=== PATIENT | female | born 1950 | race Caucasian/White ===

== ENCOUNTER → 2016-07-22 | Outpatient (CLI) | payer BC | END | disposition home or self-care (01) | LOC: C.PAPS 09:05 | PROVIDERS: ATTEND Family Medicine | DX: Z12.4 Encounter for screening for malignant neoplasm of cervix (principal) ==

== ENCOUNTER → 2017-10-03 | Outpatient (CLI) | payer BC ==
[~2017-10-03] MED LIST: B-COTAB53 PO; CALC-354 PO; CASC450C3 PO; CHOL1000 PO; LEVO50TA6 PO; MULT-506 PO; OMEGCAP2 PO
--- NOTE | 2017-10-05 14:13 | MAMMOGRAPHY REPORT ---
BILATERAL DIGITAL SCREENING MAMMOGRAM TOMOSYNTHESIS WITH CAD: 10/03/2017 CLINICAL HISTORY: Routine screening. Patient has no complaints. TECHNIQUE: Breast tomosynthesis in addition to standard 2D mammography was performed. Current study was also evaluated with a Computer Aided Detection (CAD) system. COMPARISON: Comparison is made to exams dated: 08/30/2016 mammogram, 08/21/2015 mammogram, 07/31/2014 ma mmogram, 06/26/2013 mammogram, and 05/28/2013 mammogram - [facility]. BREAST COMPOSITION: The tissue of both breasts is heterogeneously dense, which may obscure small mas ses. FINDINGS: No suspicious masses, calcifications, or areas of architectural distortion are noted in ei ther breast. There has been no significant interval change compared to prior exams. Bilateral benign -appearing calcifications are not significantly changed compared to prior exams when accounting for s light differences in mammographic technique. IMPRESSION: ACR BI-RADS CATEGORY 2: BENIGN There is no mammographic evidence of malignancy. A 1 year screening mammogram is recommended. The pa tient will receive written notification of the results. Approximately 10% of breast cancers are not detected with mammography. A negative mammographic report should not delay biopsy if a clinically suggestive mass is present. Mary Penn M.D. ah/:10/04/2017 16:08:41 [employer]: Megan HOPKINS(Paola)(M), [facility] letter sent: Normal 1/2 BI-RADS Code: ACR BI-RADS Category 2: Benign
== END | disposition home or self-care (01) ==
LOC: C.MAMM 14:22
PROVIDERS: ATTEND Family Medicine
DX: Z12.31 Encounter for screening mammogram for malignant neoplasm of breast (principal)

== ENCOUNTER → 2017-10-06 | Day surgery (SDC) | payer BC ==
[2017-08-18 13:53] VITALS: Ht 154.9 cm; Wt 57.3 kg
[~2017-10-06] VITALS: Ht 154.9 cm; Wt 57.3 kg
[~2017-10-06] MED LIST changes: +LIDOCAINE HCL 2% 2 ML VIAL (20MG/ML) ONE; +MIDAZOLAM HCL 1 MG/ML 2ML VIAL ONE; +ONDANSETRON INJ 2 MG/ML 2 ML VIAL ONE; +PROPOFOL IV EMULSION 10 MG/ML 20 ML VIAL IV ONE
--- NOTE | 2017-10-06 15:30 | Endo History and Physical ---
History & Physical Date of Service: Oct 06, 2017. Chief Complaint: Positive cologuard Referring Physician: Dr. Chey Root History of Present Illness 67 yo CF who presents for colonoscopy secondary to positive cologuard. Past Surgical History Hx Cardiac Surgery: No Hx Internal Defibrillator: No Hx Pacemaker: No Hx Abdominal Surgery: Yes () Hx of Implantable Prosthesis: No Hx Post-Op Nausea and Vomiting: No Hx Cancer Surgery: No Hx Thoracic Surgery: No Hx Orthopedic: No Hx Urinary Tract Surgery: No Family History None Social History Smoking Status: Never Smoker Hx Substance Use: No Hx Alcohol Use: No Allergies Coded Allergies: No Known Allergies (Verified , 10/06/17) Current Medications Reported Home Medications Medications Dose Route/Sig Max Daily Dose Days Date Category Dose Instructions Fish Oil ([place]-3 Fatty Acids) 1 Cap Cap 1 Cap PO DAILY 08/18/17 Reported [place] 450 Mg Cap 1 Cap PO 3XWK 08/18/17 Reported Caltrate 600+D (Calcium Carbonate-Cholecalcife) 1 Tab Tab 1 Tab PO DAILY 08/18/17 Reported Multivitamin (Multivitamins) Tab 1 Tab PO DAILY 08/18/17 Reported B Complex (B-Complex W/ Folic Acid) 1 Tab Tab 1 Tab PO DAILY 08/18/17 Reported Vitamin D3 (Cholecalciferol) 1,000 Unit Tab 1 Tab PO DAILY 08/18/17 Reported Levothyroxine Sodium 50 Mcg Tab 2 Tabs PO 6XWK 08/18/17 Reported DOES NOT TAKE ON SUNDAYS Vital Signs Weight (Kilograms): 57.27 Height (Feet): 5 Height (Inches): 1 Date Time Temp Pulse Resp B/P (MAP) Pulse Ox O2 Delivery O2 Flow Rate FiO2 10/06/17 14:31 36.6 70 18 132/77 (95) 94 Room Air Physical Exam General Appearance: WD/WN, no apparent distress Respiratory/Chest: Auscultation: breath sounds normal Cardiovascular: Heart Auscultation: RRR Abdomen: Bowel Sounds: normal Inspection & Palpation: soft, non-distended, no tenderness, guarding & rebound Assessment and Plan Assessment: 67 yo CF who presents for colonoscopy secondary to positive cologuard. Plan: Proceed with colonoscopy.
--- NOTE | 2017-10-06 16:21 | Discharge Instructions ---
Endoscopy Patient Instructions Date / Procedure(s) Performed Oct 06, 2017. Colonoscopy Allergy Information Coded Allergies: No Known Allergies (Verified , 10/06/17) Discharge Date / Findings Oct 06, 2017. Colon polyps Internal hemorrhoids Medication Instructions Stopped Medication(s): Patient stopped all supplements and vitamins on her own. OK to resume all medications today as prescribed Reported Home Medications Medications Dose Route/Sig Max Daily Dose Days Date Category Dose Instructions Fish Oil ([place]-3 Fatty Acids) 1 Cap Cap 1 Cap PO DAILY 08/18/17 Reported C[place] 450 Mg Cap 1 Cap PO 3XWK 08/18/17 Reported Caltrate 600+D (Calcium Carbonate-Cholecalcife) 1 Tab Tab 1 Tab PO DAILY 08/18/17 Reported Multivitamin (Multivitamins) Tab 1 Tab PO DAILY 08/18/17 Reported B Complex (B-Complex W/ Folic Acid) 1 Tab Tab 1 Tab PO DAILY 08/18/17 Reported Vitamin D3 (Cholecalciferol) 1,000 Unit Tab 1 Tab PO DAILY 08/18/17 Reported Levothyroxine Sodium 50 Mcg Tab 2 Tabs PO 6XWK 08/18/17 Reported DOES NOT TAKE ON SUNDAYS Provider Instructions Activity Restrictions - No exercising or heavy lifting for 24 hours. - Do not drink alcohol the day of the procedure. - Do not drive a car or operate machinery until the day after the procedure. - Do not make any important decisions or sign important papers in 24 hours after the procedure. Following Day: - Return to full activity which may include returning to work/school. Diet Start your diet with liquids and light foods (jello, soup, juice, toast). Then eat your usual diet if not nauseated. Treatment For Common After Affects For mild abdominal pain, bloating, or excessive gas: - Rest - Eat lightly - Lie on right side Follow-Up Information Follow-up with Dr. Chey Root as scheduled Anesthesia Information What You Should Know You have had a procedure that required some medicine to reduce anxiety and discomfort. This treatment is called moderate sedation. After receiving the treatment, you may be sleepy, but you will be able to breathe on your own. The effects of the treatment may last for several hours. Follow these instructions along with Activity/Diet recommendations noted above: * Do NOT do anything where dizziness or clumsiness would be dangerous. * Rest quietly at home today, then you can be up and about tomorrow. * Have a responsible person stay with you the rest of today. * You may have had an I.V. today. If so, you may take the dressing off later today. Recommendations Call your doctor if: * Trouble breathing * Continuous vomiting for more than 24 hours * Temperature above 101 degrees * Severe abdominal pain or bloating * Pain not relieved by pain medicine ordered * There is increased drainage or redness from any incision * A large amount of rectal bleeding greater than 2-3 tablespoons. (If you had a polyp/s removed or have hemorrhoids, a small amount of blood - from the rectum is to be expected.) * You have any unanswered questions or concerns. IN THE EVENT OF A SERIOUS EMERGENCY, GO TO THE NEAREST EMERGENCY ROOM Your discharge instructions were prepared by provider Alejandro Gilmore. Patient Instructions Signature Page Julisa Bryant Patient (or Guardian) Signature/Date: I have read and understand the instructions given to me by my caregivers. Caregiver/RN/Doctor Signature/Date: The above-named patient and/or guardian has received patient instructions on this date. + Original Patient Signature Page (only) stays with chart. Please make copy for patient.
--- NOTE | 2017-10-06 16:29 | Anesthesiology Progress Note ---
Anesthesia Post Op Note Date & Time Oct 06, 2017 at 16:28 Vital Signs Pain Intensity: 0 Vital Signs Past 12 Hours Date Time Temp Pulse Resp B/P (MAP) Pulse Ox O2 Delivery O2 Flow Rate FiO2 10/06/17 14:31 36.6 70 18 132/77 (95) 94 Room Air Notes Mental Status: alert / awake / arousable, participated in evaluation Pt Amnestic to Procedure: Yes Nausea / Vomiting: adequately controlled Pain: adequately controlled Airway Patency, RR, SpO2: stable & adequate BP & HR: stable & adequate Hydration State: stable & adequate Anesthetic Complications: no major complications apparent
--- NOTE | 2017-10-06 16:30 | GI REPORT ---
Procedure Date: 10/06/2017 3:36 PM Procedure: Colonoscopy Indications: Positive Cologuard test Medicines: Monitored Anesthesia Care Complications: No immediate complications. Estimated Blood Loss: Estimated blood loss: none. Procedure: Pre-Anesthesia Assessment: - Prior to the procedure, a History and Physical was performed, and patient medications and allergies were reviewed. The patient's tolerance of previous anesthesia was also reviewed. The risks and benefits of the procedure and the sedation options and risks were discussed with the patient. All questions were answered, and informed consent was obtained. Prior Anticoagulants: The patient has taken no previous anticoagulant or antiplatelet agents. ASA Grade Assessment: II - A patient with mild systemic disease. After reviewing the risks and benefits, the patient was deemed in satisfactory condition to undergo the procedure. After I obtained informed consent, the scope was passed under direct vision. Throughout the procedure, the patient's blood pressure, pulse, and oxygen saturations were monitored continuously. The Scope was introduced through the anus and advanced to the terminal ileum. The colonoscopy was performed without difficulty. The patient tolerated the procedure well. The quality of the bowel preparation was good. The terminal ileum, ileocecal valve, appendiceal orifice, and rectum were photographed. Findings: The perianal and digital rectal examinations were normal. A 17 mm polyp was found in the ascending colon. The polyp was flat. The polyp was removed with a saline injection-lift technique using a hot snare at 20 herrera. Resection and retrieval were complete. Two hemostatic clips were successfully placed (MR conditional). A 7 mm polyp was found in the ascending colon. The polyp was flat. The polyp was removed with a hot snare. Resection and retrieval were complete. Non-bleeding internal hemorrhoids were found during retroflexion. The hemorrhoids were small. Impression: - One 17 mm polyp in the ascending colon, removed using injection-lift and a hot snare. Resected and retrieved. Clips (MR conditional) were placed. - One 7 mm polyp in the ascending colon, removed with a hot snare. Resected and retrieved. - Non-bleeding internal hemorrhoids. Recommendation: - Resume previous diet. - Continue present medications. - Await pathology results. - Repeat colonoscopy for surveillance based on pathology results. Alejandro Gilmore DO 10/06/2017 4:29:45 PM This report has been signed electronically. Note Initiated On: 10/06/2017 3:36 PM I attest to the content of the Intraoperative Record and orders documented therein, exceptions below
[2017-10-06 17:01] VITALS: BP 117/61; PULSE 70; O2SAT 99
== END | disposition home or self-care (01) ==
LOC: C.GI 13:45
PROVIDERS: ATTEND Internal Medicine
DX: Z12.11 Encounter for screening for malignant neoplasm of colon (principal); D12.2 Benign neoplasm of ascending colon; K64.8 Other hemorrhoids; E03.9 Hypothyroidism, unspecified; Z87.891 Personal history of nicotine dependence

== ENCOUNTER 2025-02-19 11:00 | Inpatient (IN) ==
--- NOTE | 2025-02-19 11:21 | Emergency Department Note ---
Impression & Plan Atrial fibrillation, new onset, Pericardial effusion, Pleural effusion ED Provider Note NAME: CHERELLE ARREDONDO AGE: 75 SEX: F : 1950 ARRIVES VIA: Walk-In INFORMANT: Patient, ED PROVIDER(S): Pietro Mccord DO CHIEF COMPLAINT: "here to have my lung drained" HPI: This is a 75-year-old female with the PMHx of scleroderma, HLD, hypothyroidism, OA and pericardial effusion s/p drainage at [facility] [place] presenting to [facility] for further evaluation of large pleural effusion. Patient is accompanied by her who provide additional history. The patient states that she is here to have her pleural effusion drained. Patient states that she was in [facility] recently for manage pericardial effusion that required drainage. She reports this was infected and she required antibiotics. Patient states that she was at [place] yesterday and left AGAINST MEDICAL ADVICE. She states that they told her that she had a pericardial effusion as well as a lot of fluid in her left lung. Patient presents today to have this drained. Patient states that she has shortness of breath and intermittent chest tightness. She denies chest palpitations. Patient denies history of atrial fibrillation. They deny fever or chills. No cough or congestion. They deny abdominal pain, nausea and vomiting. No urinary complaints. No recent changes in bowel movements. Patient denies recent changes in medications or OTC supplements. Patient offers no other complaints, today. ADDITIONAL HISTORY OBTAINED: Per HPI Chronic Medical/Social Conditions Affecting Care: Per HPI PAST MEDICAL HISTORY: See Below PAST SURGICAL HISTORY: See Below FAMILY HISTORY: See Below SOCIAL HISTORY: See Below HOME MEDICATIONS: See Below ALLERGIES: See Below VITALS: See Below PHYSICAL EXAMINATION: GENERAL: Sitting up in bed, alert, well appearing, well nourished, no distress, non-toxic EYE EXAM: normal conjunctiva. PERRL and EOM's grossly intact. OROPHARYNX: no exudate, no erythema, lips, buccal mucosa, and tongue normal and mucous membranes are moist NECK: supple, no nuchal rigidity, no adenopathy, non-tender LUNGS: Decreased BS on the L. Normal chest wall mechanics HEART: no murmurs, tachycardic rate, irregular rhythm ABDOMEN: abdomen soft, non-tender, no masses, no rebound or guarding. BACK: Back is symmetrical on inspection and there is no deformity, no midline tenderness, no CVA tenderness. SKIN: no rashes and no bruising UPPER EXTREMITIES: upper extremities are grossly normal. LOWER EXTREMITIES: Trace GRACE. NEURO EXAM: Normal sensorium, GCS 15, normal speech, no gross weakness of arms, no gross weakness of legs. MEDICAL DECISION MAKING: Differential diagnoses includes but not limited to ACS, unstable angina, dysrhythmia, PNA, hypervolemia/pulmonary edema, CHF exacerbation, COPD exacerbation, PE, pneumothorax, pericardial effusion, cardiac tamponade, anxiety/psychogenic, viral URI In summary, this is a 75 year old female who presented with SOB. Differential as above. Nursing notes and pertinent past medical records reviewed. Vital signs reviewed and the patient is tachycardic and mildly tachypneic but otherwise afebrile and HDS. History and presentation revealed recent [facility] ED visit and diagnosed with pericardial effusion and pleural effusion. Patient reports today to have this removed. Care management was able to obtain the records from [facility]. Patient has been having neck and back pain. Patient was found to have significant pleural effusions on her lungs as well as a prior pericardial effusion. Patient arrives today to have her pleural effusion removed per her PCP. It appears the patient signed out AMA. Physical examination revealed as above. As a result of my initial evaluation, patient presents today with ongoing shortness of breath and back/neck pain and found to be in an irregularly irregular tachycardic. Appears to be new onset atrial fibrillation. Plan for cardiac workup. Will obtain bedside ultrasound as well as chest x-ray. Diagnostics interpreted by me include EKG and cardiac monitoring as listed below: -Cardiac Monitoring: An order was placed for continuous cardiac monitoring. The monitor shows a rate of 50-150s with irregular rhythm. -ECG: EKG independently interpreted by me reveals new onset atrial fibrillation with RVR at [address] segment changes suggest STEMI. Intervals otherwise within normal limits. Patient completed laboratory studies and imaging. Results independently interpreted by me are No significant anemia or leukocytosis. Patient's electrolytes are normal. She was mildly acidotic. Normal kidney function. Mild troponin leak in the setting of her atrial fibrillation with RVR. BNP is elevated. Chest x-ray independently turbid by me reveals a left-sided pleural effusion. No pneumothorax or focal consolidation to suggest pneumonia. Bedside ultrasound utilized. EF appears normal. There is a trace pericardial effusion. Large left-sided pleural effusion noted.. IVC appears very well with respirations. No B-lines. She may have mild heart failure but it appears her issues today are largely related to atrial fibrillation with RVR. Given concerns for possible heart failure, we proceeded with IV metoprolol for rate control. She was able to become rate controlled. Still intermittently tachycardic. Given the pleural effusion and new onset atrial fibrillation as well as her age and comorbidities, I do think it would be necessary to admit this patient. Patient is agreeable to admission at this time. Ultimately, the decision was made to admit the patient for new onset atrial fibrillation with RVR. I discussed the case with the hospitalist service via telephone/TigerText and they are agreeable to admit the patient to their services. Based on the above, including the patient's age, coexisting illnesses, labs, imaging, and exam findings the decision to treat as an inpatient. I discussed the patient with the hospitalist team who recommended admission to their services. They received the medications, treatments, interventions indicated above and their condition remained guarded. I discussed my findings with the patient and their family and they understand and agree with the treatment plan. All patient / family questions were answered to their satisfaction. Consults/Care Managements Discussions: Per MDM ER treatment provided: See above Procedures:none Critical Care: None The chart was completed utilizing D[employer]ion Speech voice recognition software. Grammatical errors, random word insertions, pronoun errors, and incomplete sentences are an occasional consequence of this system due to software limitations, ambient noise, and hardware issues. Any formal questions or concerns about the content, text, or information contained within the body of this dictation should be directly addressed to the physician for clarification. Past Med/Surg History Problem List (Updated 02/21/25 @ 08:03 by Pietro Mccord DO) Pleural effusion (Acute) Pericardial effusion (Acute) Atrial fibrillation, new onset (Acute) Pulmonary hypertension RVSP 48mmHg (mild pulm HTN) on 11/2023 stress ECHO Mean PASP 22mmHg (borderline pulm HTN) per 07/2022 [facility] Elevated troponin Recurrent left pleural effusion Balance problems Mixed hearing loss, bilateral Post-op pain Chronic sinusitis, unspecified Dysfunction of both eustachian tubes Pericardial effusion Raynaud phenomenon Dyspnea on exertion Allergic rhinitis Restrictive lung disease Thrombocytopenia Scleroderma Osteoporosis Systemic sclerosis with limited cutaneous involvement Hyperlipidemia Hypothyroidism History of adenomatous polyp of colon Medical History (Updated 02/21/25 @ 08:03 by Pietro Mccord DO) Osteoporosis pt denies. Thrombocytopenia per pt "currently low" platelets range from 68-84 since 09/2020 to 09/2023 History of COVID-19 early 05/2024, no residual symptoms Asthma allergy related, more in the spring Scleroderma Restrictive lung disease hx; used to f/u kyle neal Raynaud phenomenon Pericardial effusion - hx; f/u [facility] cardio - Moderate pericardial effusion (1-2 cm); no echocardiographic indications of cardiac tamponade per 01/2024 ECHO (no change from prior study on 03/2023) - Per cardio records- pericardial effusion secondary to scleroderma and associated chronic inflammatory mechanisms Hyperlipidemia hx, "only borderline" Dyspnea on exertion - Chronic per records - Fairly minimal with prior negative stress test per cardio records - Possible due to LVH/pulm HTN vs restrictive lung disease secondary to terminal makeup operator effects of scleroderma Chronic sinusitis Allergic rhinitis Hypothyroidism Surgical History History of placement of ear tubes History of nasal septoplasty Hx of cardiac cath H/O colonoscopy History of delivery Family History Mother Diabetes Sister Breast cancer Denies family history of Ovarian cancer Prostate cancer Myocardial infarction Colorectal cancer Social History Smoking Status: Former smoker Tobacco Type: Cigarettes Age Started Using Tobacco: 18; Age Quit Using Tobacco: 58; packs per day: 0.5; Cigarettes Per Day: half a pack a week; Second Hand Exposure: No; Do You Dip or Chew Tobacco: No; Tobacco Cessation Education Requested by Patient: No Hx Alcohol Use: No Hx Substance Use: No Preferred Language: Sinhala Communication Ability: Effective Visual Impairment: Limited Hearing Ability: Normal Marketing Admin Required: No Beliefs That Will Affect Care: None marital status: Current Living Situation: Spouse current occupational status: retired current occupation: retired banker How many Children do You have: 2 Other Information That Helps Us Care for You: No Feels Safe at Home: Yes Safety Concerns: Feels Safe At This Time Childhood Exposure to Second-Hand Smoke: No Diet: regular caffeine: Yes during the past year weight has: remained stable Dental Care, Regularly: Yes Physical Activity Frequency: 3-4 Times per Week Seatbelt Use: always Sunscreen Use: Yes Do you think of yourself as: straight/heterosexual Gender Identity: Female Assistive Devices: None Allergies Allergies Allergy/AdvReac Type Severity Reaction Status Date / Time No Known Drug Allergies Allergy Verified 02/18/25 11:29 Home Meds Home Medications Medication Instructions Recorded Confirmed fluticasone propionate 50 1 spray intranasal DAILY PRN Nasal 04/22/21 02/19/25 mcg/actuation nasal congestion spray,suspension (Flonase Allergy Relief) calcium carbonate (Calcium 600) 1,200 mg PO QAM 06/06/24 02/19/25 loratadine 10 mg tablet 10 mg PO DAILY PRN Allergy Symptoms 06/06/24 02/19/25 magnesium 200 mg tablet 200 mg PO QAM 06/06/24 02/19/25 multivitamin 1 tab PO QAM 06/06/24 02/19/25 capsicum (cayenne) 250 mg capsule 0 mg PO UD 01/28/25 02/19/25 hawthorn 500 mg capsule (hawthorn 0 mg PO DAILY 01/28/25 02/19/25 gómez) omeprazole 20 mg capsule,delayed 20 mg PO DAILY PRN heart burn 01/28/25 02/19/25 release azelastine 0.05 % eye drops 1 drp ophthalmic (eye) UD 02/19/25 02/19/25 levothyroxine 50 mcg tablet 50 mcg PO UD 02/19/25 02/19/25 Previous Rx's Medication Instructions Recorded cyclobenzaprine 5 mg tablet 5 mg PO BID PRN muscle spasm #10 02/18/25 tabs Results & Data (ED) Vital Signs Vital Signs - 24 hr 02/19/25 11:04 02/19/25 11:51 02/19/25 11:51 Temperature 36.7 C Temperature Source Temporal Artery Scan Pulse Rate 81 Pulse Rate [Apical] Pulse Rate from SpO2 Sensor Pulse Rhythm [Apical] Respiratory Rate 18 Respiratory Effort / Characteristics Non-Labored Spontaneous Respiratory Depth Normal Respiratory Pattern Blood Pressure 111/59 L 106/74 106/74 Blood Pressure [Left Arm] Blood Pressure Mean 76 79 79 Blood Pressure Mean [Left Arm] Blood Pressure Position Sitting Blood Pressure Position [Left Arm] Pulse Oximetry 97 Oxygen Delivery Method Room Air Sepsis Recent Fever Within 48 Hours No Sepsis New/Unexplained Change in Mental Status No Sepsis Action Taken by Nursing No Action Required 02/19/25 11:51 02/19/25 11:54 02/19/25 12:00 Temperature Temperature Source Pulse Rate 146 H Pulse Rate [Apical] Pulse Rate from SpO2 Sensor 111 H Pulse Rhythm [Apical] Respiratory Rate 26 H Respiratory Effort / Characteristics Respiratory Depth Respiratory Pattern Blood Pressure 106/74 Blood Pressure [Left Arm] Blood Pressure Mean 79 Blood Pressure Mean [Left Arm] Blood Pressure Position Blood Pressure Position [Left Arm] Pulse Oximetry 92 93 Oxygen Delivery Method Room Air Sepsis Recent Fever Within 48 Hours Sepsis New/Unexplained Change in Mental Status Sepsis Action Taken by Nursing 02/19/25 12:00 02/19/25 12:12 02/19/25 12:27 Temperature Temperature Source Pulse Rate 145 H 128 H Pulse Rate [Apical] 123 H Pulse Rate from SpO2 Sensor 118 H Pulse Rhythm [Apical] Irregular Respiratory Rate 20 24 Respiratory Effort / Characteristics Non-Labored Spontaneous Respiratory Depth Normal Respiratory Pattern Regular Blood Pressure Blood Pressure [Left Arm] 121/72 Blood Pressure Mean Blood Pressure Mean [Left Arm] 88 Blood Pressure Position Blood Pressure Position [Left Arm] Semi-fowlers Pulse Oximetry 92 91 Oxygen Delivery Method Room Air Sepsis Recent Fever Within 48 Hours Sepsis New/Unexplained Change in Mental Status Sepsis Action Taken by Nursing 02/19/25 12:39 02/19/25 12:45 02/19/25 13:00 Temperature Temperature Source Pulse Rate 143 H 128 H Pulse Rate [Apical] Pulse Rate from SpO2 Sensor 120 H 118 H Pulse Rhythm [Apical] Respiratory Rate 23 24 Respiratory Effort / Characteristics Respiratory Depth Respiratory Pattern Blood Pressure 110/70 Blood Pressure [Left Arm] Blood Pressure Mean 92 Blood Pressure Mean [Left Arm] Blood Pressure Position Blood Pressure Position [Left Arm] Pulse Oximetry 92 91 Oxygen Delivery Method Sepsis Recent Fever Within 48 Hours Sepsis New/Unexplained Change in Mental Status Sepsis Action Taken by Nursing 02/19/25 13:06 02/19/25 13:27 02/19/25 13:30 Temperature Temperature Source Pulse Rate 134 H 141 H 119 H Pulse Rate [Apical] Pulse Rate from SpO2 Sensor 133 H 126 H 106 H Pulse Rhythm [Apical] Respiratory Rate 20 20 22 Respiratory Effort / Characteristics Respiratory Depth Respiratory Pattern Blood Pressure Blood Pressure [Left Arm] Blood Pressure Mean Blood Pressure Mean [Left Arm] Blood Pressure Position Blood Pressure Position [Left Arm] Pulse Oximetry 90 94 92 Oxygen Delivery Method Sepsis Recent Fever Within 48 Hours Sepsis New/Unexplained Change in Mental Status Sepsis Action Taken by Nursing 02/19/25 13:30 02/19/25 13:30 02/19/25 13:30 Temperature Temperature Source Pulse Rate Pulse Rate [Apical] Pulse Rate from SpO2 Sensor Pulse Rhythm [Apical] Respiratory Rate Respiratory Effort / Characteristics Respiratory Depth Respiratory Pattern Blood Pressure 103/68 103/68 103/68 Blood Pressure [Left Arm] Blood Pressure Mean 72 72 72 Blood Pressure Mean [Left Arm] Blood Pressure Position Blood Pressure Position [Left Arm] Pulse Oximetry Oxygen Delivery Method Sepsis Recent Fever Within 48 Hours Sepsis New/Unexplained Change in Mental Status Sepsis Action Taken by Nursing 02/19/25 13:49 02/19/25 13:49 02/19/25 13:50 Temperature Temperature Source Pulse Rate 136 H Pulse Rate [Apical] 131 H Pulse Rate from SpO2 Sensor Pulse Rhythm [Apical] Respiratory Rate 20 Respiratory Effort / Characteristics Non-Labored Spontaneous Respiratory Depth Normal Respiratory Pattern Regular Blood Pressure 106/74 106/74 Blood Pressure [Left Arm] 106/74 Blood Pressure Mean 79 Blood Pressure Mean [Left Arm] 84 Blood Pressure Position Blood Pressure Position [Left Arm] Semi-fowlers Pulse Oximetry 91 Oxygen Delivery Method Room Air Sepsis Recent Fever Within 48 Hours Sepsis New/Unexplained Change in Mental Status Sepsis Action Taken by Nursing 02/19/25 13:51 02/19/25 14:00 02/19/25 14:00 Temperature Temperature Source Pulse Rate 107 H 110 H Pulse Rate [Apical] Pulse Rate from SpO2 Sensor 103 H 96 H Pulse Rhythm [Apical] Respiratory Rate 24 24 Respiratory Effort / Characteristics Respiratory Depth Respiratory Pattern Blood Pressure 107/69 Blood Pressure [Left Arm] Blood Pressure Mean 79 Blood Pressure Mean [Left Arm] Blood Pressure Position Blood Pressure Position [Left Arm] Pulse Oximetry 95 94 Oxygen Delivery Method Sepsis Recent Fever Within 48 Hours Sepsis New/Unexplained Change in Mental Status Sepsis Action Taken by Nursing 02/19/25 14:20 02/19/25 14:30 02/19/25 14:31 Temperature Temperature Source Pulse Rate 100 H Pulse Rate [Apical] Pulse Rate from SpO2 Sensor Pulse Rhythm [Apical] Respiratory Rate Respiratory Effort / Characteristics Respiratory Depth Respiratory Pattern Blood Pressure 110/68 111/68 111/68 Blood Pressure [Left Arm] Blood Pressure Mean 70 87 Blood Pressure Mean [Left Arm] Blood Pressure Position Blood Pressure Position [Left Arm] Pulse Oximetry Oxygen Delivery Method Sepsis Recent Fever Within 48 Hours Sepsis New/Unexplained Change in Mental Status Sepsis Action Taken by Nursing 02/19/25 15:43 02/19/25 16:03 Temperature Temperature Source Pulse Rate 58 L Pulse Rate [Apical] 58 L Pulse Rate from SpO2 Sensor Pulse Rhythm [Apical] Respiratory Rate 20 21 Respiratory Effort / Characteristics Respiratory Depth Respiratory Pattern Blood Pressure 107/62 Blood Pressure [Left Arm] 111/60 Blood Pressure Mean 77 Blood Pressure Mean [Left Arm] 77 Blood Pressure Position Blood Pressure Position [Left Arm] Pulse Oximetry 96 95 Oxygen Delivery Method Room Air Room Air Sepsis Recent Fever Within 48 Hours Sepsis New/Unexplained Change in Mental Status Sepsis Action Taken by Nursing Laboratory Data 02/21/25 05:49 02/21/25 05:49 Lab Results 02/19/25 02/19/25 Range/Units 11:33 13:51 WBC 6.30 (4.8-10.8) K/ul RBC 4.78 (4.20-5.40) M/uL Hgb 14.6 (12.0-16.0) g/dl Hct 45.2 (37.0-47.0) % MCV 94.6 (80.0-100.0) fL MCH 30.5 (25.0-34.0) pg MCHC 32.3 (32.0-36.0) g/dL RDW Std Deviation 54.7 H (36.4-46.3) fL RDW Coeff of Ward 15.9 H (11.5-14.5) % Plt Count 45 L (130-400) K/uL MPV 14.2 H (9.4-12.4) fL Immature Gran % (Auto) 0.5 % Neut % (Auto) 78.2 % Lymph % (Auto) 14.0 % Pitt % (Auto) 6.5 % Eos % (Auto) 0.5 % Baso % (Auto) 0.3 % Neut # (Auto) 4.93 (1.40-6.50) K/uL Lymph # (Auto) 0.88 L (1.20-3.40) K/uL Pitt # (Auto) 0.41 (0.11-0.59) K/uL Eos # (Auto) 0.03 (0.00-0.50) K/uL Baso # (Auto) 0.02 (0.00-0.20) K/uL Immature Gran # (Auto) 0.03 (0.01-0.20) K/uL PT 14.0 H (9.0-12.0) Seconds INR 1.3 H (0.9-1.1) APTT 36 H (21-31) Seconds PTT Ratio 1.3 VBG pH 7.35 L (7.36-7.41) VBG pCO2 43 (38-50) mmHg VBG pO2 < 20 mmHg VBG HCO3 24 mmol/L VBG O2 Saturation < 60.0 % VBG Base Excess -2.0 mEq/L Sodium 144 (136-145) mmol/L Potassium 4.3 (3.5-5.1) mmol/L Chloride 114 H (98-107) mmol/L Carbon Dioxide 23 (21-32) mmol/L Anion Gap 7 (3-11) BUN 27 H (6-23) mg/dl Creatinine 1.06 (0.6-1.2) mg/dl Est Cr Clr Drug Dosing 29.1 ml/min eGFR 54.11 BUN/Creatinine Ratio 25.5 H (10-20) Glucose 93 (70-99(Fasting)) mg/dl Calcium 9.2 (8.6-10.3) mg/dl Phosphorus 3.4 (2.5-4.9) mg/dl Magnesium 2.0 (1.7-2.4) mg/dl Total Bilirubin 2.5 H (0.2-1.0) mg/dl AST 34 (13-39) U/L ALT 35 (7-52) U/L Alkaline Phosphatase 124 H (34-104) U/L Troponin I High Sens 32.5 H 44.5 H D (0-14) pg/ml B-Natriuretic Peptide 1181 H (0-100) pg/ml Total Protein 6.2 (6.0-8.3) gm/dl Albumin 3.6 (3.4-5.0) gm/dl Globulin 2.6 (2.5-4.0) gm/dl Albumin/Globulin Ratio 1.4 (0.9-2) TSH 2.370 (0.300-4.500) uIu/ml Administered Medications Calcium Carbonate (Calcium Carbonate 1250mg Tab) [facility] [place] Protocol Stop: 03/22/25 08:59 Last Admin: 02/20/25 08:57 Dose: 1 tab Documented By: ERICA Cyclobenzaprine HCl (Cyclobenzaprine Hcl 5 Mg Tab) 5 mg PO BID PRN PRN Reason: muscle spasm Stop: 03/21/25 16:52 Last Admin: 02/20/25 20:17 Dose: 5 mg Documented By: JOSE Levothyroxine Sodium (Levothyroxine Sodium 100 Mcg Tablet) 100 mcg PO [id number] [facility] Stop: 03/22/25 06:29 Last Admin: 02/21/25 05:57 Dose: 100 mcg Documented By: Admin: 02/20/25 06:17 Dose: 100 mcg Documented By: JOSE Multivitamins (Multivitamin Tab) 1 [facility] [place] Stop: 03/22/25 08:59 Last Admin: 02/20/25 08:57 Dose: 1 tab Documented By: ERICA Discontinued Medications Metoprolol Tartrate (Metoprolol Tartrate 1 Mg/Ml Vial) 5 mg IV Q5M PRN PRN Reason: Tachycardia Stop: 03/21/25 12:48 Last Admin: 02/19/25 13:50 Dose: 5 mg Documented By: REYNA Metoprolol Tartrate (Metoprolol Tartrate 25 Mg Tab) 12.5 mg PO BID [facility] Stop: 03/22/25 20:59 Last Admin: 02/20/25 20:17 Dose: 12.5 mg Documented By: JOSE Imaging Data Radiologist's Impression: Chest X-Ray 02/19/25 11:21 XR chest 2V PA/lateral CLINICAL HISTORY: Dyspnea COMPARISON STUDY: 09/09/2023 FINDINGS: The heart is normal in size. There is blunting of the lateral costophrenic angles consistent with small effusions. The effusion on the left appears larger. There is associated left lower lobe atelectasis/consolidation. The mid and upper lung zones appear clear. No pneumothorax is visualized. Hilar structures are unremarkable in appearance. IMPRESSION: Increasing subpulmonic left pleural effusion with associated left lower lobe atelectasis/consolidation. ACT 112: Negative or not required by law. Electronically signed by: Camilo Burns M.D. 02/19/2025 11:56 AM Discharge Plan Visit Data Chief Complaint: Respiratory Problems Stated Complaint: FLUID ON LUNGS ED Provider: Pietro Mccord Discharge Problem: Atrial fibrillation, new onset, Pericardial effusion, Pleural effusion Patient Disposition: Admitted As Inpatient Condition: Fair Discharge Instructions Interventions: ED Discharge Assessment Last Done: 02/19/25 16:40
[2025-02-19 11:44] LABS: Base Excess VBG -2.0 mEq/L; HCO3 VBG 24 mmol/L; Oxygen Saturation VBG < 60.0 %; PCO2 VBG 43 mmHg (38-50); PO2 VBG < 20 mmHg; pH VBG 7.35 (7.36-7.41)
[2025-02-19 11:50] LABS: Hematocrit (blood only) 45.2 % (37.0-47.0); Hemoglobin 14.6 g/dl (12.0-16.0); Immature Granulocytes # (auto) 0.03 K/uL (0.01-0.20); Immature Granulocytes % (auto) 0.5 %; Mean Corpuscular Hemoglobin 30.5 pg (25.0-34.0); Mean Corpuscular Volume 94.6 fL (80.0-100.0); Platelet Count 45 K/uL (130-400); RDW Standard Deviation 54.7 fL (36.4-46.3); Red Blood Count 4.78 M/uL (4.20-5.40); White Blood Count 6.30 K/ul (4.8-10.8)
--- NOTE | 2025-02-19 11:57 | XRay Report ---
XR chest 2V PA/lateral CLINICAL HISTORY: Dyspnea COMPARISON STUDY: 09/09/2023 FINDINGS: The heart is normal in size. There is blunting of the lateral costophrenic angles consisten t with small effusions. The effusion on the left appears larger. There is associated left lower lobe atelectasis/consolidation. The mid and upper lung zones appear clear. No pneumothorax is visualized. Hilar structures are unremarkable in appearance. IMPRESSION: Increasing subpulmonic left pleural effusion with associated left lower lobe atelectasis /consolidation. ACT 112: Negative or not required by law. Electronically signed by: Camilo Burns M.D. 02/19/2025 11:56 AM
[2025-02-19 12:06] LABS: Alanine Aminotransferase 35.0 U/L (7-52); Albumin Globulin Ratio 1.4 (0.9-2); Alkaline Phosphatase 124.0 U/L (34-104); Anion Gap 7.0 (3-11); Bilirubin,Total 2.5 mg/dl (0.2-1.0); Blood Urea Nitrogen 27.0 mg/dl (6-23); Calcium 9.2 mg/dl (8.6-10.3); Carbon Dioxide 23.0 mmol/L (21-32); Chloride 114.0 mmol/L (98-107); Creatinine Clr Calc Pharmacy 29.1 ml/min; Globulin 2.6 gm/dl (2.5-4.0); Glucose 93.0 mg/dl (70-99(Fasting)); Magnesium 2.0 mg/dl (1.7-2.4); Potassium 4.3 mmol/L (3.5-5.1); Sodium 144.0 mmol/L (136-145); Total Protein 6.2 gm/dl (6.0-8.3)
[2025-02-19 12:22] LABS: INR 1.3 (0.9-1.1); Partial Thromboplastin Time 36 Seconds (21-31); Prothrombin Time 14.0 Seconds (9.0-12.0)
[2025-02-19] MEDS: METOPROLOL TARTRATE 1 MG/ML VIAL IV PRN (13:50)
--- NOTE | 2025-02-19 15:25 | Electrocardiogram Report ---
Test Reason : Blood Pressure : */* mmHG Vent. Rate : 147 BPM Atrial Rate : * BPM P-R Int : * ms QRS Dur : 72 ms QT Int : 272 ms P-R-T Axes : * -7 220 degrees QTcB Int : 425 ms Atrial fibrillation with rapid ventricular response Low voltage QRS Cannot rule out Inferior infarct , age undetermined Nonspecific ST abnormality Abnormal ECG When compared with ECG of 21-Dec-2023 14:48, (unconfirmed) Atrial fibrillation has replaced Sinus rhythm Vent. rate has increased by 81 bpm Minimal criteria for Inferior infarct are now Present Nonspecific T wave abnormality no longer evident in Anterior leads Confirmed by Bulmaro Reynolds ([id number]) on 02/19/2025 3:24:59 PM Referred By: Kriss Larsen Confirmed By: Bulmaro Reynolds
[2025-02-19 15:27] LABS: Thyroid Stimulating Hormone 2.37 uIu/ml (0.300-4.500)
--- NOTE | 2025-02-19 16:07 | History & Physical Report ---
Date of Service February 19, 2025 Assessment & Plan (1) Elevated troponin: (2) Recurrent left pleural effusion: (3) Pericardial effusion: (4) Scleroderma: (5) Raynaud phenomenon: Plan The patient is a 75-year-old female with past medical history including limited scleroderma centromere positive, Raynaud's, telangiectasias, history of ITP, pericardial effusion status post pericardiocentesis with 290 cc of fluid removal on 12/14/2024, allergic symptoms, muscle spasm, hypothyroidism, and GERD. She presents to the emergency department, actually feeling significantly better today than she did yesterday at [facility]. Imaging at this hospital yesterday reportedly showed pericardial effusion and pleural effusion. Patient is noted to have increasing troponin today from 32.5-44.5 and BNP of 1181. She was found to have new onset atrial fibrillation, and has received Lopressor 5 mg IV. Elevated troponin/new onset atrial fibrillation/pericardial effusion/left pleural effusion- The patient will be admitted to telemetry for serial cardiac enzymes, serial EKG's, cardiac rhythm monitoring and a 2-D echocardiogram with Dopplers. Initial troponin 32.5, with follow-up 44.5. Patient has a history of pericardial effusion requiring pericardiocentesis at [facility] on 12/14/2024, with 290 cc of fluid was removed. Grew gram+ cocci in clusters, but left AMA Patient had been on colchicine, but this was discontinued due to concerns regarding renal function Patient was seen at [facility] yesterday, and was told she had a large pericardial effusion and left pleural effusion, but opted to leave AMA there and has presented to the emergency department at [facility] today. The patient does have a history of scleroderma, but has not been on a trial of steroids to treat the recurrent effusions, due to concerns regarding possible infection. ECHO on 12/28/24 at [facility] showed no pericardial effusion, but did show a moderate pleural effusion CXR here shows a small left pleural effusion, doesn't look large enough to tap, pulse ox is 95 % on room air. Patient does not look septic, but no record of treatment of gram + cocci in clusters noted on 12/14/24 Consult cardiology Limited scleroderma, centromere positive- Has begun to follow with rheumatology Dr. Kearns at [facility] As noted above has not been on steroid treatment Last Rheumatology visit on 01/28/25 encouraged use of acetaminophen, and follow up with cardiology and pulmonology Pulmonary HtN/recurrent left pleural effusion- consult pulmonology GERD- Change omeprazole to pantoprazole in hospital History of Present Illness Chief Complaint: The patient presents to the emergency department after having been seen at [facility] emergency department yesterday for back pain, and was diagnosed with a pericardial effusion and pleural effusion. She left AMA there, and presents to the [facility] emergency department today for further assessment. Primary Care Provider: Kriss Larsen DO The patient is a 75-year-old female with past medical history including limited scleroderma centromere positive, Raynaud's, telangiectasias, history of ITP, pericardial effusion status post pericardiocentesis with 290 cc of fluid removal on 12/14/2024, allergic symptoms, muscle spasm, hypothyroidism, and GERD. She presents to the emergency department, actually feeling significantly better today than she did yesterday at [facility]. Imaging at this hospital yesterday reportedly showed pericardial effusion and pleural effusion. Patient is noted to have increasing troponin today from 32.5-44.5 and BNP of 1181. She was found to have new onset atrial fibrillation, and has received Lopressor 5 mg IV. Allergies Allergy/AdvReac Type Severity Reaction Status Date / Time No Known Drug Allergies Allergy Verified 02/18/25 11:29 Home Medications Medication Instructions Recorded Confirmed Type fluticasone propionate 50 1 spray intranasal DAILY PRN Nasal 04/22/21 02/19/25 History mcg/actuation nasal congestion spray,suspension (Flonase Allergy Relief) calcium carbonate (Calcium 600) 1,200 mg PO QAM 06/06/24 02/19/25 History loratadine 10 mg tablet 10 mg PO DAILY PRN Allergy Symptoms 06/06/24 02/19/25 History magnesium 200 mg tablet 200 mg PO QAM 06/06/24 02/19/25 History multivitamin 1 tab PO QAM 06/06/24 02/19/25 History capsicum (cayenne) 250 mg capsule 0 mg PO UD 01/28/25 02/19/25 History hawthorn 500 mg capsule (hawthorn 0 mg PO DAILY 01/28/25 02/19/25 History gómez) omeprazole 20 mg capsule,delayed 20 mg PO DAILY PRN heart burn 01/28/25 02/19/25 History release cyclobenzaprine 5 mg tablet 5 mg PO BID PRN muscle spasm #10 02/18/25 02/19/25 Rx tabs azelastine 0.05 % eye drops 1 drp ophthalmic (eye) UD 02/19/25 02/19/25 History levothyroxine 50 mcg tablet 50 mcg PO UD 02/19/25 02/19/25 History Past Med/Surg History Problem List (Updated 02/19/25 @ 15:57 by Telly Davalos MD) Elevated troponin Recurrent left pleural effusion Balance problems Mixed hearing loss, bilateral Post-op pain Chronic sinusitis, unspecified Dysfunction of both eustachian tubes Pericardial effusion Raynaud phenomenon Dyspnea on exertion Allergic rhinitis Restrictive lung disease Thrombocytopenia Scleroderma Osteoporosis Systemic sclerosis with limited cutaneous involvement Hyperlipidemia Hypothyroidism History of adenomatous polyp of colon Medical History (Updated 02/19/25 @ 15:57 by Telly Davalos MD) Pulmonary hypertension RVSP 48mmHg (mild pulm HTN) on 11/2023 stress ECHO Mean PASP 22mmHg (borderline pulm HTN) per 07/2022 [facility] Osteoporosis pt denies. Thrombocytopenia per pt "currently low" platelets range from 68-84 since 09/2020 to 09/2023 History of COVID-19 early 05/2024, no residual symptoms Asthma allergy related, more in the spring Scleroderma Restrictive lung disease hx; used to f/u kyle neal Raynaud phenomenon Pericardial effusion - hx; f/u kyle jeffries cardio - Moderate pericardial effusion (1-2 cm); no echocardiographic indications of cardiac tamponade per 01/2024 ECHO (no change from prior study on 03/2023) - Per cardio records- pericardial effusion secondary to scleroderma and associated chronic inflammatory mechanisms Hyperlipidemia hx, "only borderline" Dyspnea on exertion - Chronic per records - Fairly minimal with prior negative stress test per cardio records - Possible due to LVH/pulm HTN vs restrictive lung disease secondary to group home effects of scleroderma Chronic sinusitis Allergic rhinitis Hypothyroidism Surgical History History of placement of ear tubes History of nasal septoplasty Hx of cardiac cath H/O colonoscopy History of delivery Family History Mother Diabetes Sister Breast cancer Denies family history of Ovarian cancer Prostate cancer Myocardial infarction Colorectal cancer Social History Smoking Status: Former smoker Tobacco Type: Cigarettes Age Started Using Tobacco: 18; Age Quit Using Tobacco: 58; packs per day: 0.5; Cigarettes Per Day: half a pack a week; Second Hand Exposure: Yes (hx used to smoke); Do You Dip or Chew Tobacco: No; Hx Alcohol Use: Yes Alcohol type: other Alcohol Intake Frequency: Monthly or Less Alcohol Intake Frequency Comment: Wine cooler Hx Substance Use: Yes Last Used Substance Other:: "tried once and got sick" Preferred Language: Austrian Communication Ability: Effective Visual Impairment: Limited Hearing Ability: Normal Verifier Required: No Beliefs That Will Affect Care: None marital status: Current Living Situation: Spouse current occupational status: retired current occupation: retired banker How many Children do You have: 2 Feels Safe at Home: Yes Childhood Exposure to Second-Hand Smoke: No Diet: regular caffeine: Yes during the past year weight has: remained stable Dental Care, Regularly: Yes Physical Activity Frequency: 3-4 Times per Week Seatbelt Use: always Sunscreen Use: Yes Do you think of yourself as: straight/heterosexual Gender Identity: Female Assistive Devices: Glasses Review of Systems Review of Systems: The patient denies chest pain, palpitations, lower extremity swelling, sore throat, fevers, chills, sweats, nausea, vomiting, diarrhea , constipation, abdominal pain, pelvic pain, blood in urine or stool, dysuria, urinary frequency or urgency, lightheadedness, dizziness, headache, memory loss, loss of consciousness, rash, abnormal bruising or bleeding, imbalance, focal or generalized weakness, numbness or tingling in arms or legs, generalized arthralgias or myalgias, neck pain, or night sweats. The review of systems is otherwise negative other than for that already noted above, and at least 10 systems have been reviewed. Physical Exam Physical Exam: The patient is awake, alert and oriented 3, well developed and well nourished, normocephalic and atraumatic, lying in bed and in no acute distress. HEENT--PERRL, EOMI, mucous membranes and oropharynx mildly dry. Neck--supple. No JVD. No bruits. Thyroid normal, trachea midline, no adenopathy. Heart--normal S1 and S2. No murmurs, rubs or gallops. Lungs--crackles at the bases bilaterally Abdomen--normal bowel sounds and soft. Nontender. Nondistended, no hernias or masses, no organomegaly. Extremities--no cyanosis or clubbing. No edema. Dermatologic--normal skin turgor, normal color, no abnormal lymph nodes, no rash. Neurologic--cranial nerves II through XII grossly intact. Rheumatologic--normal range of motion. Psychiatric--normal affect. Results & Data Results & Data Vital Signs (Past 12 Hours) Vital Signs Temp Pulse Pulse Resp BP BP Pulse Ox 02/19/25 15:43 58 L 20 111/60 96 02/19/25 14:31 100 H 111/68 02/19/25 14:30 111/68 02/19/25 14:20 110/68 02/19/25 14:00 107/69 02/19/25 14:00 110 H 24 94 02/19/25 13:51 107 H 24 95 02/19/25 13:50 136 H 106/74 02/19/25 13:49 106/74 02/19/25 13:49 131 H 20 106/74 91 02/19/25 13:30 103/68 02/19/25 13:30 103/68 02/19/25 13:30 103/68 02/19/25 13:30 119 H 22 92 02/19/25 13:27 141 H 20 94 02/19/25 13:06 134 H 20 90 02/19/25 13:00 110/70 02/19/25 12:45 128 H 24 91 02/19/25 12:39 143 H 23 92 02/19/25 12:27 128 H 24 91 02/19/25 12:12 145 H 02/19/25 12:00 123 H 20 121/72 92 02/19/25 12:00 93 02/19/25 11:54 146 H 26 H 92 02/19/25 11:51 106/74 02/19/25 11:51 106/74 02/19/25 11:51 106/02/19/25 11:04 36.7 C 81 18 111/59 L 97 O2 Del Method 02/19/25 15:43 Room Air 02/19/25 14:31 02/19/25 14:30 02/19/25 14:20 02/19/25 14:00 02/19/25 14:00 02/19/25 13:51 02/19/25 13:50 02/19/25 13:49 02/19/25 13:49 Room Air 02/19/25 13:30 02/19/25 13:30 02/19/25 13:30 02/19/25 13:30 02/19/25 13:27 02/19/25 13:06 02/19/25 13:00 02/19/25 12:45 02/19/25 12:39 02/19/25 12:27 02/19/25 12:12 02/19/25 12:00 Room Air 02/19/25 12:00 Room Air 02/19/25 11:54 02/19/25 11:51 02/19/25 11:51 02/19/25 11:51 02/19/25 11:04 Room Air Laboratory Results Laboratory Results WBC 6.30 K/ul (4.8-10.8) 02/19/25 11:33 RBC 4.78 M/uL (4.20-5.40) 02/19/25 11:33 Hgb 14.6 g/dl (12.0-16.0) 02/19/25 11:33 Hct 45.2 % (37.0-47.0) 02/19/25 11:33 MCV 94.6 fL (80.0-100.0) 02/19/25 11:33 MCH 30.5 pg (25.0-34.0) 02/19/25 11:33 MCHC 32.3 g/dL (32.0-36.0) 02/19/25 11:33 RDW Std Deviation 54.7 fL (36.4-46.3) H 02/19/25 11:33 RDW Coeff of Ward 15.9 % (11.5-14.5) H 02/19/25 11:33 Plt Count 45 K/uL (130-400) L 02/19/25 11:33 MPV 14.2 fL (9.4-12.4) H 02/19/25 11:33 Immature Gran % (Auto) 0.5 % 02/19/25 11:33 Neut % (Auto) 78.2 % 02/19/25 11:33 Lymph % (Auto) 14.0 % 02/19/25 11:33 [place] % (Auto) 6.5 % 02/19/25 11:33 Eos % (Auto) 0.5 % 02/19/25 11:33 Baso % (Auto) 0.3 % 02/19/25 11:33 Neut # (Auto) 4.93 K/uL (1.40-6.50) 02/19/25 11:33 Lymph # (Auto) 0.88 K/uL (1.20-3.40) L 02/19/25 11:33 [place] # (Auto) 0.41 K/uL (0.11-0.59) 02/19/25 11:33 Eos # (Auto) 0.03 K/uL (0.00-0.50) 02/19/25 11:33 Baso # (Auto) 0.02 K/uL (0.00-0.20) 02/19/25 11:33 Immature Gran # (Auto) 0.03 K/uL (0.01-0.20) 02/19/25 11:33 PT 14.0 Seconds (9.0-12.0) H 02/19/25 11:33 INR 1.3 (0.9-1.1) H 02/19/25 11:33 APTT 36 Seconds (21-31) H 02/19/25 11:33 PTT Ratio 1.3 02/19/25 11:33 VBG pH 7.35 (7.36-7.41) L 02/19/25 11:33 VBG pCO2 43 mmHg (38-50) 02/19/25 11:33 VBG pO2 < 20 mmHg 02/19/25 11:33 VBG HCO3 24 mmol/L 02/19/25 11:33 VBG O2 Saturation < 60.0 % 02/19/25 11:33 VBG Base Excess -2.0 mEq/L 02/19/25 11:33 Sodium 144 mmol/L (136-145) 02/19/25 11:33 Potassium 4.3 mmol/L (3.5-5.1) 02/19/25 11:33 Chloride 114 mmol/L (98-107) H 02/19/25 11:33 Carbon Dioxide 23 mmol/L (21-32) 02/19/25 11:33 Anion Gap 7 (3-11) 02/19/25 11:33 BUN 27 mg/dl (6-23) H 02/19/25 11:33 Creatinine 1.06 mg/dl (0.6-1.2) 02/19/25 11:33 Est Cr Clr Drug Dosing 29.1 ml/min 02/19/25 11:33 eGFR 54.11 02/19/25 11:33 BUN/Creatinine Ratio 25.5 (10-20) H 02/19/25 11:33 Glucose 93 mg/dl (70-99(Fasting)) 02/19/25 11:33 Calcium 9.2 mg/dl (8.6-10.3) 02/19/25 11:33 Phosphorus 3.4 mg/dl (2.5-4.9) 02/19/25 11:33 Magnesium 2.0 mg/dl (1.7-2.4) 02/19/25 11:33 Total Bilirubin 2.5 mg/dl (0.2-1.0) H 02/19/25 11:33 AST 34 U/L (13-39) 02/19/25 11:33 ALT 35 U/L (7-52) 02/19/25 11:33 Alkaline Phosphatase 124 U/L (34-104) H 02/19/25 11:33 Troponin I High Sens 44.5 pg/ml (0-14) H D 02/19/25 13:51 B-Natriuretic Peptide 1181 pg/ml (0-100) H 02/19/25 11:33 Total Protein 6.2 gm/dl (6.0-8.3) 02/19/25 11:33 Albumin 3.6 gm/dl (3.4-5.0) 02/19/25 11:33 Globulin 2.6 gm/dl (2.5-4.0) 02/19/25 11:33 Albumin/Globulin Ratio 1.4 (0.9-2) 02/19/25 11:33 TSH 2.370 uIu/ml (0.300-4.500) 02/19/25 13:51 Impressions Chest X-Ray 02/19/25 11:21 XR chest 2V PA/lateral CLINICAL HISTORY: Dyspnea COMPARISON STUDY: 09/09/2023 FINDINGS: The heart is normal in size. There is blunting of the lateral costophrenic angles consistent with small effusions. The effusion on the left appears larger. There is associated left lower lobe atelectasis/consolidation. The mid and upper lung zones appear clear. No pneumothorax is visualized. Hilar structures are unremarkable in appearance. IMPRESSION: Increasing subpulmonic left pleural effusion with associated left lower lobe atelectasis/consolidation. ACT 112: Negative or not required by law. Electronically signed by: Camilo Burns M.D. 02/19/2025 11:56 AM Code Status & VTE Plan Code Status Full code VTE Prophylaxis Plan VTE Prophylaxis will be ordered: Yes PG Care Time/CCT Total # of Minutes Spent Total Time Spent with Patient: Total time spent is greater than 50% in coordination of care (as documented) at patient's floor/unit and/or counseling patient: Coding Level of Care Code 82256 INT INP/OBS CARE 3/75MIN Diagnoses Elevated troponin R79.89 Recurrent left pleural effusion J90 Pericardial effusion I31.39 Scleroderma M34.9 Raynaud phenomenon I73.00
[2025-02-19] MEDS ORDERED: ONDANSETRON INJ 2 MG/ML 2 ML VIAL IV PRN (16:53)
[2025-02-19] MEDS ORDERED: LORATADINE 10 MG TAB PO PRN (16:53)
[2025-02-19] MEDS ORDERED: FLUTICASONE PROPIONATE NA SPR 16 GM BTL NAE PRN (16:53)
[2025-02-19] MEDS ORDERED: ARTIFICIAL TEARS OPB PRN (17:06)
[2025-02-19 19:07] LABS: Appearance Urine Clear (Clear); Bacteria Urine Automated None Seen (None Seen); Cast Urine Automated 0-2 /lpf (0-2); Epithelial Cell Urine Auto 0-2 /hpf (0-2); Glucose Urine UA Negative (Negative); RBC Urine Automated 0-2 /hpf (0-2)
[2025-02-19 20:00] VITALS: RESP 18
[2025-02-20 06:05] LABS: Hematocrit (blood only) 35.1 % (37.0-47.0); Hemoglobin 11.7 g/dl (12.0-16.0); Immature Granulocytes # (auto) 0.03 K/uL (0.01-0.20); Immature Granulocytes % (auto) 0.6 %; Mean Corpuscular Hemoglobin 31.0 pg (25.0-34.0); Mean Corpuscular Volume 92.9 fL (80.0-100.0); Platelet Count 58 K/uL (130-400); RDW Standard Deviation 53.1 fL (36.4-46.3); Red Blood Count 3.78 M/uL (4.20-5.40); White Blood Count 4.76 K/ul (4.8-10.8)
[2025-02-20] MEDS: LEVOTHYROXINE SODIUM 100 MCG TABLET PO SCH (06:17)
[2025-02-20 06:24] LABS: Alanine Aminotransferase 26.0 U/L (7-52); Albumin Globulin Ratio 1.4 (0.9-2); Alkaline Phosphatase 107.0 U/L (34-104); Anion Gap 6.0 (3-11); Bilirubin,Total 1.3 mg/dl (0.2-1.0); Blood Urea Nitrogen 32.0 mg/dl (6-23); Calcium 8.3 mg/dl (8.6-10.3); Carbon Dioxide 20.0 mmol/L (21-32); Chloride 115.0 mmol/L (98-107); Creatinine Clr Calc Pharmacy 31.6 ml/min; Globulin 2.0 gm/dl (2.5-4.0); Glucose 84.0 mg/dl (70-99(Fasting)); Magnesium 1.8 mg/dl (1.7-2.4); Potassium 4.2 mmol/L (3.5-5.1); Sodium 141.0 mmol/L (136-145); Total Protein 4.7 gm/dl (6.0-8.3)
--- NOTE | 2025-02-20 07:33 | Pulmonary Consultation ---
Date of Consultation February 20, 2025 Assessment & Plan (1) Recurrent left pleural effusion: (2) Pericardial effusion: (3) Scleroderma: (4) Pulmonary hypertension: Plan 75-year-old female admitted to the hospital for new onset A-fib. Pulmonary consulted for pleural effusion Past medical history: Limited scleroderma/crest syndrome, history of ITP, pericardial effusion s/p pericardiocentesis 12/14/2024, hypothyroidism, GERD 2D echo 02/20/2025: EF 60-65%, RV moderately dilated with mildly reduced systolic function, trace pericardial effusion -- Left-sided pleural effusion Small Etiology is not clear Could be from crest syndrome versus pulmonary hypertension No subjective or objective signs of infection -- Pulmonary hypertension In summary with history of limited scleroderma/crest syndrome Primary pulmonary hypertension is very high in differential She will eventually need right heart cath to look at the right-sided pressures and wedge pressure Following which endothelin receptor antagonist as well as PDE 5 inhibitors could be thought of if the wedge is normal --History of pulmonary nodules Documented on the CAT scan of the chest on 02/18/2025 Measuring up to 3.5 mm Patient does have history of social smoking never a heavy smoker, quit at the age of 60 Will try to push the images so that I am personally able to look at them --History of pericardial effusion S/p pericardiocentesis with removal of 290 mL of fluid on 12/12/2024 Negative for malignancy but culture did grew gram-positive cocci in clusters Plan: For thoracentesis with IR Case was discussed with IR Follow-up ESR/CRP Patient had a CAT scan of the chest done 02/18/2025, Will try to push the images so that I am personally able to look at them Case discussed with radiology Patient will eventually need right heart cath to look at the right-sided pressures and wedge pressure Following which endothelin receptor antagonist as well as PDE 5 inhibitors could be thought of if the wedge is normal Case discussed with primary team as well as RN at bedside I spent more than 75 minutes looking in the chart, images, discussing the plan of care with the patient, RN as well as primary team Please note the above document was generated using voice recognition software. It may contain grammatical, syntax or spelling errors.Any formal questions or concerns about the content, text or information contained within the body of this dictation should be directly addressed to the provider for clarification. History of Present Illness Attending Physician: Isra Reyes MD History of Present Illness 75-year-old female admitted to the hospital for new onset A-fib. Pulmonary consulted for pleural effusion Past medical history: Limited scleroderma/crest syndrome, history of ITP, pericardial effusion s/p pericardiocentesis 12/14/2024, hypothyroidism, GERD At the time of examination patient was not in any respiratory distress On asking the reason she came to the hospital was that when she woke up she had some significant muscle spasm around the neck area Denies any pleuritic chest pain. No shortness of breath Able to do her day-to-day activities without any issues Denies any recent trauma. No headache, no blurry vision No dysuria, no diarrhea Denies any fever or chills Does have Raynaud's, no other autoimmune diseases or family that she is aware of Social history: Used to smoke socially a cigarette a day, quit around the age of 60 Has dogs at home. No personal or family history of asthma No history of lung cancer in the family Allergies Allergy/AdvReac Type Severity Reaction Status Date / Time No Known Drug Allergies Allergy Verified 02/18/25 11:29 Home Medications Medication Instructions Recorded Confirmed Type fluticasone propionate 50 1 spray intranasal DAILY PRN Nasal 04/22/21 02/19/25 History mcg/actuation nasal congestion spray,suspension (Flonase Allergy Relief) calcium carbonate (Calcium 600) 1,200 mg PO QAM 06/06/24 02/19/25 History loratadine 10 mg tablet 10 mg PO DAILY PRN Allergy Symptoms 06/06/24 02/19/25 History magnesium 200 mg tablet 200 mg PO QAM 06/06/24 02/19/25 History multivitamin 1 tab PO QAM 06/06/24 02/19/25 History capsicum (cayenne) 250 mg capsule 0 mg PO UD 01/28/25 02/19/25 History hawthorn 500 mg capsule (hawthorn 0 mg PO DAILY 01/28/25 02/19/25 History gómez) omeprazole 20 mg capsule,delayed 20 mg PO DAILY PRN heart burn 01/28/25 02/19/25 History release cyclobenzaprine 5 mg tablet 5 mg PO BID PRN muscle spasm #10 02/18/25 02/19/25 Rx tabs azelastine 0.05 % eye drops 1 drp ophthalmic (eye) UD 02/19/25 02/19/25 History levothyroxine 50 mcg tablet 50 mcg PO UD 02/19/25 02/19/25 History Patient History Medical History (Updated 02/20/25 @ 12:16 by Daniel Rod MD, [facility]) Osteoporosis pt denies. Thrombocytopenia per pt "currently low" platelets range from 68-84 since 09/2020 to 09/2023 History of COVID-19 early 05/2024, no residual symptoms Asthma allergy related, more in the spring Scleroderma Restrictive lung disease hx; used to f/u kyle neal Raynaud phenomenon Pericardial effusion - hx; f/u kyle jeffries cardio - Moderate pericardial effusion (1-2 cm); no echocardiographic indications of cardiac tamponade per 01/2024 ECHO (no change from prior study on 03/2023) - Per cardio records- pericardial effusion secondary to scleroderma and associated chronic inflammatory mechanisms Hyperlipidemia hx, "only borderline" Dyspnea on exertion - Chronic per records - Fairly minimal with prior negative stress test per cardio records - Possible due to LVH/pulm HTN vs restrictive lung disease secondary to fci effects of scleroderma Chronic sinusitis Allergic rhinitis Hypothyroidism Surgical History History of placement of ear tubes History of nasal septoplasty Hx of cardiac cath H/O colonoscopy History of delivery Family History Mother Diabetes Sister Breast cancer Denies family history of Ovarian cancer Prostate cancer Myocardial infarction Colorectal cancer Social History Smoking Status: Former smoker Tobacco Type: Cigarettes Age Started Using Tobacco: 18; Age Quit Using Tobacco: 58; packs per day: 0.5; Cigarettes Per Day: half a pack a week; Second Hand Exposure: No; Do You Dip or Chew Tobacco: No; Tobacco Cessation Education Requested by Patient: No Hx Alcohol Use: No Hx Substance Use: No Preferred Language: [place]ese Communication Ability: Effective Visual Impairment: Limited Hearing Ability: Normal Trauma Doctor Required: No Beliefs That Will Affect Care: None marital status: Current Living Situation: Spouse current occupational status: retired current occupation: retired banker How many Children do You have: 2 Other Information That Helps Us Care for You: No Feels Safe at Home: Yes Safety Concerns: Feels Safe At This Time Childhood Exposure to Second-Hand Smoke: No Diet: regular caffeine: Yes during the past year weight has: remained stable Dental Care, Regularly: Yes Physical Activity Frequency: 3-4 Times per Week Seatbelt Use: always Sunscreen Use: Yes Do you think of yourself as: straight/heterosexual Gender Identity: Female Assistive Devices: None Review of Systems 2 Review of Systems: All systems reviewed & are unremarkable except as noted in HPI & below Physical Exam 2 Physical Exam: Constitutional: No acute distress HEENT: EOMI, PERRLA Respiratory system: Decreased air entry in the left lower side, no wheeze, no rhonchi, mild crackles left lower side CVS: S1-S2 positive, accentuated P2, question S3 gallop Abdomen: Soft, nontender, nondistended, positive bowel sounds x4 Extremities: +2 pulses bilaterally radialis/ dorsalis pedis, no cyanosis, no edema Neuro: Awake alert oriented x3 Psych: Normal mood and affect G/U: No Parra Skin: no rashes, warm and dry Lymphatic: no cervical or axillary lymphadenopathy Results & Data Results & Data Vital Signs (Past 12 Hours) Vital Signs Temp Pulse Pulse Resp BP Pulse Ox O2 Del Method 02/20/25 02:55 36.9 C 71 18 110/68 91 Room Air 02/19/25 23:31 63 02/19/25 22:37 36.8 C 60 18 113/60 91 Room Air 02/19/25 19:42 36.7 C 65 18 112/63 93 Room Air Laboratory Results 02/20/25 05:26 02/20/25 05:26 PG Care Time/CCT Total # of Minutes Spent Total Time Spent with Patient: Total time spent is greater than 50% in coordination of care (as documented) at patient's floor/unit and/or counseling patient: Coding Level of Care Code 88618 INT INP/OBS CARE 3/75MIN Diagnoses Recurrent left pleural effusion J90 Pericardial effusion I31.39 Scleroderma M34.9 Pulmonary hypertension I27.20
[2025-02-20] MEDS: CALCIUM CARBONATE 1250MG TAB PO SCH (08:57)
[2025-02-20] MEDS: MULTIVITAMIN TAB PO SCH (08:57)
[2025-02-20] MEDS ORDERED: NON-FORMULARY MEDICATION (Magnesium 200 mg Tablet) PO SCH (09:00)
--- NOTE | 2025-02-20 09:28 | XCELERA ---
[id number] [id number]
--- NOTE | 2025-02-20 11:01 | Electrocardiogram Report ---
Test Reason : Blood Pressure : */* mmHG Vent. Rate : 60 BPM Atrial Rate : 60 BPM P-R Int : 172 ms QRS Dur : 78 ms QT Int : 454 ms P-R-T Axes : 73 73 62 degrees QTcB Int : 454 ms Normal sinus rhythm Normal ECG When compared with ECG of 19-Feb-2025 11:19, Sinus rhythm has replaced Atrial fibrillation Vent. rate has decreased by 87 bpm Minimal criteria for Inferior infarct are no longer Present ST no longer depressed in Anterolateral leads Confirmed by Bulmaro Reynolds ([id number]) on 02/20/2025 11:01:16 AM Referred By: Kriss Larsen Confirmed By: Bulmaro Reynolds
--- NOTE | 2025-02-20 12:19 | Procedure Note ---
Procedure Note Date of Service February 20, 2025 Bedside Ultrasound: Lung: Left:-Small hypoechoic simple left-sided pleural effusion with compressive atelectasis of the lower lobe Right:-Minimal right-sided pleural effusion Heart: Mild hypoechoic pericardial effusion, no tamponade Please note the above document was generated using voice recognition software. It may contain grammatical, syntax or spelling errors.Any formal questions or concerns about the content, text or information contained within the body of this dictation should be directly addressed to the provider for clarification. [facility] Procedure Codes (Charges) Pulmonary/Thoracic Procedure 1: Pulmonary and Thoracic: 74511 US, Chest, real time with imaging documentation Coding CPT Codes Pulmonary/Thoracic - Pulmonary and Thoracic: 71525 US, Chest, real time with imaging documentation ([id number]) Additional Codes Date of Service (PG.SURGERY)
--- NOTE | 2025-02-20 13:17 | Ultrasound Report ---
ULTRASOUND-GUIDED LEFT THORACENTESIS CLINICAL HISTORY: Left pleural effusion PROCEDURE: Procedure and risks were explained. Informed consent was obtained. A final timeout was com pleted. The left posterior thorax was prepped and draped in sterile fashion. 1% lidocaine was utilize d for skin anesthesia. Utilizing ultrasound guidance, a 5 Amharic safety centesis catheter was advanced into the left pleural effusion. Ultrasound images were obtained. A total of 425 mL of yellow pleural fluid was removed and sent to the lab. The catheter was removed and Band-Aid applied. The patient tolerated the procedure well. A chest x-ray will be obtained and vital signs will be monitored postprocedure. IMPRESSION: Ultrasound-guided left thoracentesis as above. Performed, dictated, and signed by Daniel De La Rosa PA-C; to be co-signed by Dr. Jamey Hartley. Electronically signed by: Jamey Hartley M.D. 02/20/2025 1:48 PM
--- NOTE | 2025-02-20 13:29 | XRay Report ---
XR chest 1V not portable CLINICAL HISTORY: s/p left thora COMPARISON STUDY: 02/19/2025 FINDINGS: There are trace pleural effusions, decreased. There is no pneumothorax. Stable mild cardiom egaly without pulmonary vascular congestion. IMPRESSION: No pneumothorax. ACT 112: Negative or not required by law. Electronically signed by: Jamey Hartley M.D. 02/20/2025 1:27 PM
[2025-02-20 13:53] LABS: Appearance Pleural Fluid Hazy; Color Pleural Fluid Yellow; RBC Pleural Fluid Auto 3000 /uL; Source Pleural Fluid Left Lung; WBC Pleural Fluid Auto 1190 /uL
[2025-02-20 14:23] LABS: Lymphocytes, Fluid 84 %; Mono,Macrophage,Mesothelial 6 %; Neutrophils, Fluid 10 %
[2025-02-20 15:32] LABS: Bilirubin,Total 1.5 mg/dl (0.2-1.0); Total Protein 5.3 gm/dl (6.0-8.3)
--- NOTE | 2025-02-20 19:00 | Hospitalist Progress Note ---
Date of Service February 20, 2025 Assessment & Plan (1) Elevated troponin: (2) Recurrent left pleural effusion: (3) Pericardial effusion: (4) Scleroderma: (5) Raynaud phenomenon: Plan The patient is a 75-year-old female with past medical history including limited scleroderma centromere positive, Raynaud's, telangiectasias, history of ITP, pericardial effusion status post pericardiocentesis with 290 cc of fluid removal on 12/14/2024, allergic symptoms, muscle spasm, hypothyroidism, and GERD. She presents to the emergency department, actually feeling significantly better today than she did yesterday at [facility]. Imaging at this hospital yesterday reportedly showed pericardial effusion and pleural effusion. Patient is noted to have increasing troponin today from 32.5-44.5 and BNP of 1181. She was found to have new onset atrial fibrillation, and has received Lopressor 5 mg IV. #New onset atrial fibrillation Converted yesterday after metoprolol IV 5mg given, will start a low dose 12.5mg PO BID Given short duration plan to observe overnight with outpatient environmental monitoring specialist prior to starting anticoagulation for this due to concurrent thrombocytopenia and no definitive evidence this will occur TTE reassuring TSH normal #Left pleural effusion / pulmonary hypertension Appreciate evaluation by pulmonology, planning on IR thoracentesis for diagnostic and therapeutic purposes. Planning on right heart cath likely as outpatient #History of pericardial effusion Patient has a history of pericardial effusion requiring pericardiocentesis at [facility] on 12/14/2024, with 290 cc of fluid was removed. Grew gram+ cocci in clusters, but left AMA Patient had been on colchicine, but this was discontinued due to concerns regarding renal function The patient does have a history of scleroderma, but has not been on a trial of steroids to treat the recurrent effusions, due to concerns regarding possible infection. Patient does not look septic, but no record of treatment of gram + cocci in clusters noted on 12/14/24 No current pericardial effusion on echo #Elevated troponin Mild, not significant changes, suspect related to a. fib RVR and now back to her baseline, not consistent with ACS #Limited scleroderma, centromere positive- Has begun to follow with rheumatology Dr. Kearns at [facility] As noted above has not been on steroid treatment Last Rheumatology visit on 01/28/25 encouraged use of acetaminophen, and follow up with cardiology and pulmonology #GERD Change omeprazole to pantoprazole in hospital VTE Prophylaxis - low risk, thrombocytopenia Disposition - continue to monitor for recurrent a. fib on PCU Admission and Anticipated Discharge Date Admission Date: February 19, 2025 Subjective Patient reportedly feeling much improved. Converted out of atrial fibrillation yesterday after 5mg IV metoprolol. Reports wanting to leave [place] as she just doesn't like the hospital. She felt the atrial fibrillation yesterday with shortness of breath but no palpitations. She has not had other episodes similar to this. Review of Systems Review of Systems: All systems reviewed & are unremarkable except as noted in HPI & below Physical Exam Constitutional: WD/WN, vitals as above Respiratory: normal respiratory effort, lungs clear to auscultation Cardiovascular: RRR, no murmur, no edema Results & Data Results & Data Vital Signs (Past 12 Hours) Vital Signs Temp Pulse Pulse Resp BP Pulse Ox O2 Del Method 02/20/25 15:58 62 02/20/25 15:13 66 125/72 02/20/25 14:43 62 134/73 02/20/25 14:13 62 135/72 02/20/25 13:43 58 L 145/77 H 02/20/25 13:32 36.3 C L 63 134/73 94 Room Air 02/20/25 12:03 36.5 C 60 18 119/83 95 Room Air 02/20/25 08:20 36.7 C 62 18 121/70 93 Room Air 02/20/25 08:00 65 PG Care Time/CCT Total # of Minutes Spent Total Time Spent with Patient: Total time spent is greater than 50% in coordination of care (as documented) at patient's floor/unit and/or counseling patient: Coding Level of Care Code 10740 SUB INP/OBS CARE 3/50MIN Diagnoses Elevated troponin R79.89 Recurrent left pleural effusion J90 Pericardial effusion I31.39 Scleroderma M34.9 Raynaud phenomenon I73.00
[2025-02-20] MEDS: METOPROLOL TARTRATE 25 MG TAB PO SCH (20:17)
[2025-02-20] MEDS: CYCLOBENZAPRINE HCL 5 MG TAB PO PRN (20:17)
[2025-02-21 07:03] LABS: Hematocrit (blood only) 35.2 % (37.0-47.0); Hemoglobin 11.3 g/dl (12.0-16.0); Immature Granulocytes # (auto) 0.01 K/uL (0.01-0.20); Immature Granulocytes % (auto) 0.3 %; Mean Corpuscular Hemoglobin 29.9 pg (25.0-34.0); Mean Corpuscular Volume 93.1 fL (80.0-100.0); Platelet Count 65 K/uL (130-400); RDW Standard Deviation 52.0 fL (36.4-46.3); Red Blood Count 3.78 M/uL (4.20-5.40); White Blood Count 3.75 K/ul (4.8-10.8)
[2025-02-21 07:12] LABS: Alanine Aminotransferase 28.0 U/L (7-52); Albumin Globulin Ratio 1.3 (0.9-2); Alkaline Phosphatase 119.0 U/L (34-104); Anion Gap 5.0 (3-11); Bilirubin,Total 1.1 mg/dl (0.2-1.0); Blood Urea Nitrogen 27.0 mg/dl (6-23); Calcium 8.1 mg/dl (8.6-10.3); Carbon Dioxide 23.0 mmol/L (21-32); Chloride 112.0 mmol/L (98-107); Creatinine Clr Calc Pharmacy 29.5 ml/min; Globulin 2.0 gm/dl (2.5-4.0); Glucose 86.0 mg/dl (70-99(Fasting)); Magnesium 1.7 mg/dl (1.7-2.4); Potassium 4.1 mmol/L (3.5-5.1); Sodium 140.0 mmol/L (136-145); Total Protein 4.6 gm/dl (6.0-8.3)
[2025-02-21] MEDS: ACETAMINOPHEN 325 MG TAB PO PRN (07:55)
--- NOTE | 2025-02-21 09:08 | Pulmonology Progress Note ---
Date of Service February 21, 2025 Assessment & Plan (1) Recurrent left pleural effusion: (2) Pericardial effusion: (3) Scleroderma: (4) Pulmonary hypertension: Plan 75-year-old female admitted to the hospital for new onset A-fib. Pulmonary consulted for pleural effusion Past medical history: Limited scleroderma/crest syndrome, history of ITP, pericardial effusion s/p pericardiocentesis 12/14/2024, hypothyroidism, GERD CT chest 02/18/25 personally reviewed: Bilateral apical pleural scarring Centrilobular nodularities appreciated bilaterally Motion degraded study Moderate left-sided pleural effusion, small right-sided pleural effusion Mediastinal lymphadenopathy especially station 4R 2D echo 02/20/2025: EF 60-65%, RV moderately dilated with mildly reduced systolic function, trace pericardial effusion -- Left-sided pleural effusion Small S/p left-sided thoracentesis 02/20/2025, 425 mL of serous fluid was removed, transudative as per lights criteria Pleural: LDH 74 , protein less than 3 Serum: LDH 167, protein 5.3 Etiology is not clear Could be from crest syndrome versus pulmonary hypertension ESR 7, CRP 7.19 No subjective or objective signs of infection -- Pulmonary hypertension In summary with history of limited scleroderma/crest syndrome Primary pulmonary hypertension is very high in differential She will eventually need right heart cath to look at the right-sided pressures and wedge pressure Following which endothelin receptor antagonist as well as PDE 5 inhibitors could be thought of if the wedge is normal Patient apparently had a cardiac cath done a while ago at [facility]. Will try to get the report Patient is unsure of the exact numbers but she says that the blood pressures/numbers were 35-50 --History of pulmonary nodules with abnormal chest CT Documented on the CAT scan of the chest on 02/18/2025 Measuring up to 3.5 mm Patient seems to have centrilobular opacities given the history of crest syndrome I would recommend an HRCT to be done as an outpatient Patient does have history of social smoking never a heavy smoker, quit at the age of 60 --History of pericardial effusion S/p pericardiocentesis with removal of 290 mL of fluid on 12/12/2024 Negative for malignancy but culture did grew gram-positive cocci in clusters Plan: ESR was within normal limit, CRP was mildly elevated Fluid is transudative. Recommend HRCT as well as full PFT to be done as an outpatient Patient will eventually need right heart cath to look at the right-sided pressures and wedge pressure Following which endothelin receptor antagonist as well as PDE 5 inhibitors could be thought of if the wedge is normal Patient apparently had a cardiac cath done a while ago at [facility]. Will try to get the report Patient is unsure of the exact numbers but she says that the blood pressures/numbers were 35-50 Case discussed with primary team as well as RN at bedside Please note the above document was generated using voice recognition software. It may contain grammatical, syntax or spelling errors.Any formal questions or concerns about the content, text or information contained within the body of this dictation should be directly addressed to the provider for clarification. Admission and Anticipated Discharge Date Admission Date: February 19, 2025 Subjective Patient seen and examined at bedside. No acute distress, no adverse events overnight Patient's was also in the room She was saturating 97% on room air with heart rate in the mid 50s Denied any nausea vomiting No pleuritic chest pain Shortness of breath is improved. No dizziness Review of Systems 2 Review of Systems: All systems reviewed & are unremarkable except as noted in Subjective Physical Exam 2 Physical Exam: Constitutional: No acute distress HEENT: EOMI, PERRLA Respiratory system: Decreased air entry bilaterally, no wheeze, no rhonchi, minimal crackles bilaterally CVS: S1-S2 positive, accentuated P2, question S3 gallop Abdomen: Soft, nontender, nondistended, positive bowel sounds x4 Extremities: +2 pulses bilaterally radialis/ dorsalis pedis, no cyanosis, no edema Neuro: Awake alert oriented x3 Psych: Normal mood and affect G/U: No Parra Skin: no rashes, warm and dry Lymphatic: no cervical or axillary lymphadenopathy Results & Data Results & Data Vital Signs (Past 12 Hours) Vital Signs Temp Pulse Pulse Resp BP Pulse Ox O2 Del Method 02/21/25 08:00 50 L 02/21/25 07:50 36.4 C L 56 L 18 122/74 93 Room Air 02/21/25 02:47 36.4 C L 56 L 18 114/66 91 Room Air 02/20/25 23:35 55 L 02/20/25 22:28 36.8 C 54 L 18 122/69 94 Room Air Laboratory Results 02/21/25 05:49 02/21/25 05:49 PG Care Time/CCT Total # of Minutes Spent Total Time Spent with Patient: Total time spent is greater than 50% in coordination of care (as documented) at patient's floor/unit and/or counseling patient: Coding Level of Care Code 95932 SUB INP/OBS CARE 2/35MIN Diagnoses Recurrent left pleural effusion J90 Pericardial effusion I31.39 Scleroderma M34.9 Pulmonary hypertension I27.20
[2025-02-21 11:44] VITALS: BP 104/63; PULSE 53; TEMP 97.3; O2SAT 96
--- NOTE | 2025-02-21 11:45 | Electrocardiogram Report ---
Test Reason : Blood Pressure : */* mmHG Vent. Rate : 49 BPM Atrial Rate : 49 BPM P-R Int : 166 ms QRS Dur : 76 ms QT Int : 486 ms P-R-T Axes : 47 89 54 degrees QTcB Int : 439 ms Sinus bradycardia Low voltage QRS Borderline ECG When compared with ECG of 20-Feb-2025 06:03, No significant change was found Confirmed by Bulmaro Ryenolds ([id number]) on 02/21/2025 11:44:54 AM Referred By: Kriss Larsen Confirmed By: Bulmaro Reynolds
--- NOTE | 2025-02-21 11:46 | Discharge Summary ---
Discharge Summary Date of Service February 21, 2025 Principal Dx & Hospital Course #1 = Principal Diagnosis (1) Elevated troponin: (2) Recurrent left pleural effusion: (3) Pericardial effusion: (4) Scleroderma: (5) Raynaud phenomenon: Plan The patient is a 75-year-old female with past medical history including limited scleroderma centromere positive, Raynaud's, telangiectasias, history of ITP, pericardial effusion status post pericardiocentesis with 290 cc of fluid removal on 12/14/2024, allergic symptoms, muscle spasm, hypothyroidism, and GERD. She presents to the emergency department, actually feeling significantly better today than she did yesterday at [facility]. Imaging at this hospital yesterday reportedly showed pericardial effusion and pleural effusion. Patient is noted to have increasing troponin today from 32.5-44.5 and BNP of 1181. She was found to have new onset atrial fibrillation, and has received Lopressor 5 mg IV. #New onset atrial fibrillation Converted yesterday after metoprolol IV 5mg given, will start a low dose 12.5mg PO BID Given short duration plan to observe overnight with outpatient court recording monitor prior to starting anticoagulation for this due to concurrent thrombocytopenia and no definitive evidence this will occur TTE reassuring TSH normal #Left pleural effusion / pulmonary hypertension Appreciate evaluation by pulmonology, planning on IR thoracentesis for diagnostic and therapeutic purposes. Planning on right heart cath likely as outpatient #History of pericardial effusion Patient has a history of pericardial effusion requiring pericardiocentesis at [facility] on 12/14/2024, with 290 cc of fluid was removed. Grew gram+ cocci in clusters, but left AMA Patient had been on colchicine, but this was discontinued due to concerns regarding renal function The patient does have a history of scleroderma, but has not been on a trial of steroids to treat the recurrent effusions, due to concerns regarding possible infection. Patient does not look septic, but no record of treatment of gram + cocci in clusters noted on 12/14/24 No current pericardial effusion on echo #Elevated troponin Mild, not significant changes, suspect related to a. fib RVR and now back to her baseline, not consistent with ACS #Limited scleroderma, centromere positive- Has begun to follow with rheumatology Dr. Kearns at [facility] As noted above has not been on steroid treatment Last Rheumatology visit on 01/28/25 encouraged use of acetaminophen, and follow up with cardiology and pulmonology #GERD Change omeprazole to pantoprazole in hospital VTE Prophylaxis - low risk, thrombocytopenia Disposition - continue to monitor for recurrent a. fib on PCU Admission HPI Per Admitting Provider The patient is a 75-year-old female with past medical history including limited scleroderma centromere positive, Raynaud's, telangiectasias, history of ITP, pericardial effusion status post pericardiocentesis with 290 cc of fluid removal on 12/14/2024, allergic symptoms, muscle spasm, hypothyroidism, and GERD. She presents to the emergency department, actually feeling significantly better today than she did yesterday at [facility]. Imaging at this hospital yesterday reportedly showed pericardial effusion and pleural effusion. Patient is noted to have increasing troponin today from 32.5-44.5 and BNP of 1181. She was found to have new onset atrial fibrillation, and has received Lopressor 5 mg IV. Discharge Exam Constitutional WD/WN, vitals as above Respiratory normal respiratory effort, lungs clear to auscultation Cardiovascular RRR, no murmur, no edema Discharge Plan Discharge Items Patient Disposition: Home - Self-Care Reason For Visit: ELEVATED TROPONIN, PLEURAL EFFUSION, SCLERODERMA Discharge Diagnosis: Atrial fibrillation with rapid ventricular rate Left inflammatory pleural effusion Condition on Discharge: Fair Activity: Resume your previous activity Non-emergency contact: Primary Care Provider Call non-emergency contact if: you have any medication questions and your symptoms worsen Follow-up/Referrals: Lyndon Suazo MD, PhD [Physician] - (Follow up atrial fibrillation) [facility], [facility] [Physician] - (Follow up pulm HTN and pleural effusion) Kriss Larsen DO [Primary Care Provider] - Cheko Kearns DO [Physician] - (Follow up inflammatory pericardial and pleural effusions) Diet: Regular Addtl Attending Provider Instructions: You were admitted to [facility] from February 19 - 2024 due to shortness of breath. You were diagnosed with atrial fibrillation with rapid ventricular rate which resolved after metoprolol given. You have had no further episodes of atrial fibrillation overnight and did not tolerate further oral dose of metoprolol due to low heart rate. We discussed anticoagulation for stroke risk reduction but given limited episode and low platelets will avoid this currently and opt to use a court recording monitor to see if you have further episodes. Please follow up with your dial painter for this. You were also diagnosed with a left pleural effusion. You underwent thoracentesis for diagnostic and therapeutic purposes. Pathology of this showed moderate acute and chronic inflammation. Pulmonology recommended starting colchicine for this and following up with your associate director of nursing for this and your recent pericardial effusion. Please also follow up with pulmonology for your pulmonary hypertension (high blood pressure to your lungs) and pleural effusion. Pending Studies at Discharge: No Stand-Alone Forms: My [facility], Smoking Cessation Medications and DC Order Prescriptions: New colchicine 0.6 mg tablet 0.6 mg PO DAILY Qty: 30 0RF Continued fluticasone propionate [Flonase Allergy Relief] 50 mcg/actuation spray,suspension 1 spray INTNAS DAILY PRN (Reason: Nasal congestion) Patient Comments: 02/19- otc/no fill history unable to verify Rx Instructions: administer into each nostril daily omeprazole 20 mg capsule,delayed release(DR/EC) 20 mg PO DAILY PRN (Reason: heart burn) Patient Comments: 02/19- otc/no fill history unable to verify cyclobenzaprine 5 mg tablet 5 mg PO BID PRN (Reason: muscle spasm) Qty: 10 0RF hawthorn gómez 500 mg capsule 0 mg PO DAILY Patient Comments: 02/19- otc unable to verify capsicum (cayenne) 250 mg capsule 0 mg PO UD Patient Comments: 02/19- otc unable to verify loratadine 10 mg Tablet 10 mg PO DAILY PRN (Reason: Allergy Symptoms) Patient Comments: 02/19- otc/no fill history unable to verify magnesium 200 mg Tablet 200 mg PO QAM Patient Comments: 02/19- otc unable to verify multivitamin tablet 1 tab PO QAM Patient Comments: 02/19- otc unable to verify calcium carbonate [Calcium 600] 600 mg calcium (1,500 mg) tablet 1,200 mg PO QAM Patient Comments: 02/19- otc unable to verify azelastine 0.05 % drops 1 drp ophthalmic (eye) UD levothyroxine 50 mcg tablet 50 mcg PO UD Rx Instructions: Take 2 tablets by mouth daily 6 days and week and 1 tablet on day seven Discharge Orders: Discharge Order (Routine); Ordered 02/21/25 Ordered By: Isra M. Amy Admission Data Admit Date/Time: 02/19/25 15:48 Attending Provider: Isra Reyes Admit Provider: Telly Davalos Primary Care Provider: Kriss Larsen Other Providers: Telly Davalos; Daniel Rod Hospital Stay Data Consultations 02/19/25 15:09 ED Decision to Admit Stat 02/19/25 16:37 Consult Pulmonology Routine Diagnostic Imagining Performed 02/20/25 07:33 US point of care ultrasound Urgent 02/20/25 12:01 IR thoracentesis wo tube US Routine Pending Results Patient Have Any Pending Studies at Discharge: No Discharge Instructions Given to Patient (Per Discharging Provider) You were admitted to [facility] from February 19 - 2024 due to shortness of breath. You were diagnosed with atrial fibrillation with rapid ventricular rate which resolved after metoprolol given. You have had no further episodes of atrial fibrillation overnight and did not tolerate further oral dose of metoprolol due to low heart rate. We discussed anticoagulation for stroke r isk reduction but given limited episode and low platelets will avoid this currently and opt to use a court recording monitor to see if you have further episodes. Please follow up with your dial painter for this. You were also diagnosed with a left pleural effusion. You underwent thoracentesis for diagnostic and therapeutic purposes. Pathology of this showed moderate acute and chronic inflammation. Pulmonology recommended starting colchicine for this and following up with your associate director of nursing for this and your recent pericardial effusion. Please also follow up with pulmonology for your pulmonary hypertension (high blood pressure to your lungs) and pleural effusion. Coding Diagnoses Elevated troponin R79.89 Recurrent left pleural effusion J90 Pericardial effusion I31.39 Scleroderma M34.9 Raynaud phenomenon I73.00
[2025-02-24] MEDS ORDERED: LEVOTHYROXINE SODIUM 50 MCG TABLET PO SCH (06:30)
== END 2025-02-21 12:44 | disposition home or self-care (01) | DRG 187 ==
LOC: SUATTDRO → ED 11:00 → SUATTDRO 15:48 → 4W 15:48

== ENCOUNTER 2025-03-15 16:40 | Observation (INO) ==
[2025-03-15] MEDS: ACETAMINOPHEN 1,000 MG/100 ML VIAL IV STA (17:22)
--- NOTE | 2025-03-15 17:30 | Emergency Department Note ---
ED Visit Note I was consulted by the Advanced Practice Provider ERNIE Aguayo. I performed a substantive portion of the visit including all aspects of medical decision making. .
[2025-03-15 17:36] LABS: Hematocrit (blood only) 45.5 % (37.0-47.0); Hemoglobin 14.7 g/dl (12.0-16.0); Immature Granulocytes # (auto) 0.03 K/uL (0.01-0.20); Immature Granulocytes % (auto) 0.4 %; Mean Corpuscular Hemoglobin 30.2 pg (25.0-34.0); Mean Corpuscular Volume 93.4 fL (80.0-100.0); Platelet Count 53 K/uL (130-400); RDW Standard Deviation 51.8 fL (36.4-46.3); Red Blood Count 4.87 M/uL (4.20-5.40); White Blood Count 7.43 K/ul (4.8-10.8)
[2025-03-15 17:54] LABS: Bilirubin,Total 1.7 mg/dl (0.2-1.0); Calcium 8.9 mg/dl (8.6-10.3); Carbon Dioxide 23 mmol/L (21-32); Chloride 109 mmol/L (98-107)
[2025-03-15 18:02] LABS: Alanine Aminotransferase 23 U/L (7-52); Albumin Globulin Ratio 1.2 (0.9-2); Alkaline Phosphatase 105 U/L (34-104); Blood Urea Nitrogen 28 mg/dl (6-23); Globulin 2.9 gm/dl (2.5-4.0); Glucose 116 mg/dl (70-99(Fasting)); Total Protein 6.5 gm/dl (6.0-8.3)
[2025-03-15] MEDS: OPTIRAY 320 125ml IV ONE (18:46)
--- NOTE | 2025-03-15 18:51 | XRay Report ---
Clinical history: Pain Technique: 3 views of the lumbar spine are submitted for review Findings: The lumbar vertebrae are in normal alignment with no listhesis seen. No fracture is identified. There are small degenerative spurs throughout the lower thoracic and lumbar spine. No focal osseous lesion is seen. The bowel gas pattern appears unremarkable. There are extensive vascular calcifications Impression: Multilevel degenerative disc disease Electronically signed by Rony Delgadillo 03-15-2025 6:50 PM
[2025-03-15 18:55] LABS: Potassium 4.2 mmol/L (3.5-5.1); Sodium 139.0 mmol/L (136-145)
--- NOTE | 2025-03-15 18:56 | XRay Report ---
INDICATION: Back pain TECHNIQUE: 3 views of the thoracic spine were obtained. COMPARISON: None FINDINGS: No significant vertebral body height loss or spondylolisthesis. Usual thoracic kyphosis is preserved. There are multilevel degenerative changes characterized by disc space loss, endplate changes of the vertebral bodies with marginal osteophyte formation and syndesmophytes. No significant spondylolisthesis. IMPRESSION: No significant vertebral body height loss or spondylolisthesis. Multilevel degenerative changes of the thoracic spine. Electronically signed by Ra Olsen 03-15-2025 6:56 PM
--- NOTE | 2025-03-15 18:56 | XRay Report ---
EXAM: Portable AP chest radiograph TECHNIQUE: AP portable radiograph of the chest was obtained. INDICATION: Shortness of breath Comparison: Chest radiograph February 20, 2025 FINDINGS: LINES and TUBES: None CARDIOVASCULAR: Cardiac silhouette is stably enlarged in size. Atherosclerosis of the thoracic aorta. LUNGS/PLEURA: Hazy bibasilar densities obscuring the hemidiaphragms may represent any combination of small layering pleural fluids, atelectasis and airspace disease, mildly increased from previous. Mild interstitial pulmonary edema is also mildly increased from prior. No discernible pneumothorax. Skinfolds project over bilateral hemothoraces. OSSEOUS/OTHER: No displaced acute osseous process identified. IMPRESSION: Congestive changes of the cardiovascular system appear to have slightly worsened from prior radiograph dated February 20, 2025. Hazy bibasilar densities obscuring the hemidiaphragms may represent any combination of small layering pleural fluids, atelectasis and airspace disease, mildly increased from previous. Electronically signed by Ra Olsen 03-15-2025 6:56 PM
--- NOTE | 2025-03-15 19:16 | CT Scan Report ---
Clinical history: Rule out pulmonary embolism Technique: Axial computed tomography images were obtained of the chest after the administration of intravenous contrast according to the CT angiogram protocol Comparison is made to the prior CT dated 02/18/2025 Findings: There is no definite sign of pulmonary embolism. There is lingular and bilateral lower lobe atelectasis. There is no pneumothorax. There is a moderate sized left pleural effusion and there is a small right pleural effusion. No endobronchial lesion is seen There is no mediastinal, hilar, or axillary adenopathy. The thoracic aorta appears unremarkable with no sign of aneurysm or dissection. There is moderate sized pericardial effusion There is a 3.2 cm left renal cyst. No fracture is seen. No focal osseous lesion is evident Impression: 1. No definite sign of pulmonary embolism 2. Lingular and bilateral lower lobe atelectasis 3. Left larger than right pleural effusions 4. Pericardial effusion ACT 112: Positive. There are findings on this exam that require communication between the performing entity and the patient following Patient Test Result Information Act ([place] ACT 112) guidelines. Electronically signed by Rony Delgadillo 03-15-2025 7:16 PM
--- NOTE | 2025-03-15 20:15 | History & Physical Report ---
Date of Service March 15, 2025 Assessment & Plan (1) Pleural effusion: (2) Pericardial effusion: (3) Atrial fibrillation, new onset: (4) Pulmonary hypertension: Plan The patient is a 75-year-old female with past medical history including limited scleroderma centromere positive, Raynaud's, telangiectasias, history of ITP, pericardial effusion status post pericardiocentesis which showed a 90 cc of fluid removed on 12/14/2024 at [facility], muscle spasms, hypothyroidism, bilateral pleural effusions, paroxysmal atrial fibrillation, and GERD. She presents to the emergency department due to bilateral shoulder pain that developed 2 days ago, and worsened over the past 24 hours. In the emergency department she underwent a CTA chest which was negative for PE, did show bilateral pleural effusions, and moderate-sized pericardial effusion. Her most recent admission was from 02/19-02/21/2025, when she was again found to have bilateral pleural effusions and pericardial effusion, but presented with new onset atrial fibrillation. She presents today in normal sinus rhythm, and normal breathing, but primarily complains of bilateral shoulder pain is worse when she takes a deep breath. Recurrent pleural effusions, left greater than right- Likely cause of her bilateral shoulder pain She will likely need a thoracentesis, as she had at last admission Systolic blood pressure is 105 Will give her albumin 25 g IV, then furosemide 20 mg IV on a trial basis Patient did not start Eliquis that was prescribed for her 2 days ago CTA chest was negative for PE Consult pulmonology Pericardial effusion- Described as moderate on CTA of chest Cardiology was going to perform a limited echo when she was seen there on 03/13 order echocardiogram Continue colchicine at twice daily dosing Paroxysmal atrial fibrillation- In sinus rhythm Had new diagnosis of atrial fibrillation at last admission on 02/19 She had been prescribed Eliquis on 03/13, but has not started taking it yet Cardiology consult to get their opinion regarding anticoagulation and pericardial effusion Scleroderma/Raynaud's/Telangiectasias- She has not been on prednisone or Solu-Medrol before If no significant improvement with albumin/Lasix above, could consider trial of Solu-Medrol 20 mg IV Multilevel level degenerative disc disease lumbar spine and thoracic spine- May be contributing to her bilateral shoulder pain, Anti-inflammatories would be difficult if she is going to be going on Eliquis prior to discharge Hypothyroidism- Continue levothyroxine History of Present Illness Chief Complaint: The patient presents to the emergency department due to bilateral shoulder pain., That developed over the past few days and worsened today. Primary Care Provider: Kriss Larsen DO The patient is a 75-year-old female with past medical history including limited scleroderma centromere positive, Raynaud's, telangiectasias, history of ITP, per icardial effusion status post pericardiocentesis which showed a 90 cc of fluid removed on 12/14/2024 at [facility], muscle spasms, hypothyroidism, bilateral pleural effusions, paroxysmal atrial fibrillation, and GERD. She presents to the emergency department due to bilateral shoulder pain that developed 2 days ago, and worsened over the past 24 hours. In the emergency department she underwent a CTA chest which was negative for PE, did show bilateral pleural effusions, and moderate-sized pericardial effusion. Her most recent admission was from 02/19-02/21/2025, when she was again found to have bilateral pleural effusions and pericardial effusion, but presented with new onset atrial fibrillation. She presents today in normal sinus rhythm, and normal breathing, but primarily complains of bilateral shoulder pain is worse when she takes a deep breath. Allergies Allergy/AdvReac Type Severity Reaction Status Date / Time No Known Drug Allergies Allergy Verified 03/13/25 14:04 Home Medications Medication Instructions Recorded Confirmed Type fluticasone propionate 50 1 spray intranasal DAILY PRN Nasal 04/22/21 03/15/25 History mcg/actuation nasal congestion spray,suspension (Flonase Allergy Relief) calcium carbonate (Calcium 600) 1,200 mg PO QAM 06/06/24 03/15/25 History multivitamin 1 tab PO QAM 06/06/24 03/15/25 History azelastine 0.05 % eye drops 1 drp ophthalmic (eye) UD 02/19/25 03/15/25 History levothyroxine 50 mcg tablet 50 mcg PO UD 02/19/25 03/15/25 History colchicine 0.6 mg tablet 0.6 mg PO DAILY #30 tabs 02/21/25 03/15/25 Rx capsicum (cayenne) 250 mg capsule 250 mg PO UD 02/22/25 03/15/25 History loratadine 10 mg tablet 10 mg PO DAILY PRN Allergy Symptoms 02/22/25 03/15/25 History magnesium 200 mg tablet 200 mg PO QAM 02/22/25 03/15/25 History apixaban 2.5 mg tablet (Eliquis) 2.5 mg PO BID #180 tabs 03/14/25 03/15/25 Rx potassium chloride 0 mg PO DAILY 03/15/25 03/15/25 History Past Med/Surg History Problem List Pleural effusion (Acute) Pericardial effusion (Acute) Atrial fibrillation, new onset (Acute) Pulmonary hypertension RVSP 48mmHg (mild pulm HTN) on 11/2023 stress ECHO Mean PASP 22mmHg (borderline pulm HTN) per 07/2022 [facility] Elevated troponin Recurrent left pleural effusion Balance problems Mixed hearing loss, bilateral Post-op pain Chronic sinusitis, unspecified Dysfunction of both eustachian tubes Pericardial effusion Raynaud phenomenon Dyspnea on exertion Allergic rhinitis Restrictive lung disease Thrombocytopenia Scleroderma Osteoporosis Systemic sclerosis with limited cutaneous involvement Hyperlipidemia Hypothyroidism History of adenomatous polyp of colon Medical History Osteoporosis Thrombocytopenia History of COVID-19 Asthma Scleroderma Restrictive lung disease Raynaud phenomenon Pericardial effusion Hyperlipidemia Dyspnea on exertion Chronic sinusitis Allergic rhinitis Hypothyroidism Surgical History History of placement of ear tubes History of nasal septoplasty Hx of cardiac cath H/O colonoscopy History of delivery Family History Mother Diabetes Sister Breast cancer Denies family history of Ovarian cancer Prostate cancer Myocardial infarction Colorectal cancer Social History Smoking Status: Former smoker Tobacco Type: Cigarettes Age Started Using Tobacco: 18; Age Quit Using Tobacco: 58; packs per day: 0.5; Cigarettes Per Day: half a pack a week; Second Hand Exposure: No; Do You Dip or Chew Tobacco: No; Hx Alcohol Use: No Hx Substance Use: No Preferred Language: Upper Sorbian Communication Ability: Effective Visual Impairment: Limited Hearing Ability: Normal Nuclear Medicine Specialist Required: No Beliefs That Will Affect Care: None marital status: Current Living Situation: Spouse current occupational status: retired current occupation: retired banker How many Children do You have: 2 Feels Safe at Home: Yes Childhood Exposure to Second-Hand Smoke: No Diet: regular caffeine: Yes during the past year weight has: remained stable Dental Care, Regularly: Yes Physical Activity Frequency: 3-4 Times per Week Seatbelt Use: always Sunscreen Use: Yes Do you think of yourself as: straight/heterosexual Gender Identity: Female Assistive Devices: None Review of Systems Review of Systems: The patient denies chest pain, palpitations, cough, lower extremity swelling, sore throat, fevers, chills, sweats, nausea, vomiting, diarrhea , constipation, abdominal pain, pelvic pain, blood in urine or stool, dysuria, urinary frequency or urgency, lightheadedness, dizziness, headache, memory loss, loss of consciousness, rash, abnormal bruising or bleeding, imbalance, focal weakness, numbness or tingling in arms or legs, generalized arthralgias or myalgias, or night sweats. The review of systems is otherwise negative other than for that already noted above, and at least 10 systems have been reviewed. Physical Exam Physical Exam: The patient is awake, alert and oriented 3, well developed and well nourished, normocephalic and atraumatic, lying in bed and in no acute distress. HEENT--PERRL, EOMI, mucous membranes and oropharynx Normal Neck--supple. No JVD. No bruits. Thyroid normal, trachea midline, no adenopathy. Heart--normal S1 and S2. No murmurs, rubs or gallops. Lungs-- crackles at the bases bilaterally left greater than right. No respiratory distress, no accessory muscle use. Abdomen--normal bowel sounds and soft. Nontender. Nondistended, no hernias or masses, no organomegaly. Extremities-. Trace bilateral pretibial pitting edema. There are good distal pulses b/l. Dermatologic--normal skin turgor, normal color, no abnormal lymph nodes, no rash. Neurologic--cranial nerves II through XII grossly intact. Rheumatologic--normal range of motion. Psychiatric--normal affect. Results & Data Results & Data Vital Signs (Past 12 Hours) Vital Signs Temp Pulse Pulse Resp BP BP Pulse Ox 03/15/25 19:20 76 17 105/60 98 03/15/25 18:42 78 20 96/58 L 93 03/15/25 18:18 76 20 92 03/15/25 17:36 77 18 93 03/15/25 17:30 106/60 03/15/25 17:30 81 03/15/25 17:08 94 03/15/25 17:08 82 20 115/65 94 03/15/25 16:52 36.9 C 88 19 98/65 L 97 O2 Del Method 03/15/25 19:20 Room Air 03/15/25 18:42 Room Air 03/15/25 18:18 03/15/25 17:36 03/15/25 17:30 03/15/25 17:30 03/15/25 17:08 Room Air 03/15/25 17:08 Room Air 03/15/25 16:52 Room Air Laboratory Results Laboratory Results WBC 7.43 K/ul (4.8-10.8) 03/15/25 17:15 RBC 4.87 M/uL (4.20-5.40) 03/15/25 17:15 Hgb 14.7 g/dl (12.0-16.0) 03/15/25 17:15 Hct 45.5 % (37.0-47.0) 03/15/25 17:15 MCV 93.4 fL (80.0-100.0) 03/15/25 17:15 MCH 30.2 pg (25.0-34.0) 03/15/25 17:15 MCHC 32.3 g/dL (32.0-36.0) 03/15/25 17:15 RDW Std Deviation 51.8 fL (36.4-46.3) H 03/15/25 17:15 RDW Coeff of Ward 15.0 % (11.5-14.5) H 03/15/25 17:15 Plt Count 53 K/uL (130-400) L 03/15/25 17:15 Immature Gran % (Auto) 0.4 % 03/15/25 17:15 Neut % (Auto) 87.1 % 03/15/25 17:15 Lymph % (Auto) 6.5 % 03/15/25 17:15 Cecil % (Auto) 5.4 % 03/15/25 17:15 Eos % (Auto) 0.3 % 03/15/25 17:15 Baso % (Auto) 0.3 % 03/15/25 17:15 Neut # (Auto) 6.48 K/uL (1.40-6.50) 03/15/25 17:15 Lymph # (Auto) 0.48 K/uL (1.20-3.40) L 03/15/25 17:15 Cecil # (Auto) 0.40 K/uL (0.11-0.59) 03/15/25 17:15 Eos # (Auto) 0.02 K/uL (0.00-0.50) 03/15/25 17:15 Baso # (Auto) 0.02 K/uL (0.00-0.20) 03/15/25 17:15 Immature Gran # (Auto) 0.03 K/uL (0.01-0.20) 03/15/25 17:15 D-Dimer 530 ug/L FEU (0-500) H* 03/15/25 17:15 Sodium 139 mmol/L (136-145) 03/15/25 18:19 Potassium 4.2 mmol/L (3.5-5.1) 03/15/25 18:19 Chloride 109 mmol/L (98-107) H 03/15/25 17:15 Carbon Dioxide 23 mmol/L (21-32) 03/15/25 17:15 Anion Gap TNP 03/15/25 17:15 BUN 28 mg/dl (6-23) H 03/15/25 17:15 Creatinine 0.96 mg/dl (0.6-1.2) 03/15/25 17:15 Est Cr Clr Drug Dosing Not Reportable 03/15/25 17:15 eGFR 60.94 03/15/25 17:15 BUN/Creatinine Ratio 29.2 (10-20) H 03/15/25 17:15 Glucose 116 mg/dl (70-99(Fasting)) H 03/15/25 17:15 Calcium 8.9 mg/dl (8.6-10.3) 03/15/25 17:15 Total Bilirubin 1.7 mg/dl (0.2-1.0) H 03/15/25 17:15 AST 24 U/L (13-39) 03/15/25 18:19 ALT 23 U/L (7-52) 03/15/25 17:15 Alkaline Phosphatase 105 U/L (34-104) H 03/15/25 17:15 Troponin I High Sens 7.0 pg/ml (0-14) 03/15/25 17:15 B-Natriuretic Peptide 276 pg/ml (0-100) H 03/15/25 17:35 Total Protein 6.5 gm/dl (6.0-8.3) 03/15/25 17:15 Albumin 3.6 gm/dl (3.4-5.0) 03/15/25 17:15 Globulin 2.9 gm/dl (2.5-4.0) 03/15/25 17:15 Albumin/Globulin Ratio 1.2 (0.9-2) 03/15/25 17:15 Impressions Chest X-Ray 03/15/25 17:05 EXAM: Portable AP chest radiograph TECHNIQUE: AP portable radiograph of the chest was obtained. INDICATION: Shortness of breath Comparison: Chest radiograph February 20, 2025 FINDINGS: LINES and TUBES: None CARDIOVASCULAR: Cardiac silhouette is stably enlarged in size. Atherosclerosis of the thoracic aorta. LUNGS/PLEURA: Hazy bibasilar densities obscuring the hemidiaphragms may represent any combination of small layering pleural fluids, atelectasis and airspace disease, mildly increased from previous. Mild interstitial pulmonary edema is also mildly increased from prior. No discernible pneumothorax. Skinfolds project over bilateral hemothoraces. OSSEOUS/OTHER: No displaced acute osseous process identified. IMPRESSION: Congestive changes of the cardiovascular system appear to have slightly worsened from prior radiograph dated February 20, 2025. Hazy bibasilar densities obscuring the hemidiaphragms may represent any combination of small layering pleural fluids, atelectasis and airspace disease, mildly increased from previous. Electronically signed by Ra Olsen 03-15-2025 6:56 PM Lumbar Spine X-Ray 03/15/25 17:05 Clinical history: Pain Technique: 3 views of the lumbar spine are submitted for review Findings: The lumbar vertebrae are in normal alignment with no listhesis seen. No fracture is identified. There are small degenerative spurs throughout the lower thoracic and lumbar spine. No focal osseous lesion is seen. The bowel gas pattern appears unremarkable. There are extensive vascular calcifications Impression: Multilevel degenerative disc disease Electronically signed by Rony Delgadillo 03-15-2025 6:50 PM Thoracic Spine X-Ray 03/15/25 17:05 INDICATION: Back pain TECHNIQUE: 3 views of the thoracic spine were obtained. COMPARISON: None FINDINGS: No significant vertebral body height loss or spondylolisthesis. Usual thoracic kyphosis is preserved. There are multilevel degenerative changes characterized by disc space loss, endplate changes of the vertebral bodies with marginal osteophyte formation and syndesmophytes. No significant spondylolisthesis. IMPRESSION: No significant vertebral body height loss or spondylolisthesis. Multilevel degenerative changes of the thoracic spine. Electronically signed by Ra Olsen 03-15-2025 6:56 PM Chest CTA 03/15/25 18:19 Clinical history: Rule out pulmonary embolism Technique: Axial computed tomography images were obtained of the chest after the administration of intravenous contrast according to the CT angiogram protocol Comparison is made to the prior CT dated 02/18/2025 Findings: There is no definite sign of pulmonary embolism. There is lingular and bilateral lower lobe atelectasis. There is no pneumothorax. There is a moderate sized left pleural effusion and there is a small right pleural effusion. No endobronchial lesion is seen There is no mediastinal, hilar, or axillary adenopathy. The thoracic aorta appears unremarkable with no sign of aneurysm or dissection. There is moderate sized pericardial effusion There is a 3.2 cm left renal cyst. No fracture is seen. No focal osseous lesion is evident Impression: 1. No definite sign of pulmonary embolism 2. Lingular and bilateral lower lobe atelectasis 3. Left larger than right pleural effusions 4. Pericardial effusion ACT 112: Positive. There are findings on this exam that require communication between the performing entity and the patient following Patient Test Result Information Act ([place] ACT 112) guidelines. Electronically signed by Rony Delgadillo 03-15-2025 7:16 PM Code Status & VTE Plan Code Status Full code VTE Prophylaxis Plan VTE Prophylaxis will be ordered: Yes PG Care Time/CCT Total # of Minutes Spent Total Time Spent with Patient: Total time spent is greater than 50% in coordination of care (as documented) at patient's floor/unit and/or counseling patient: Coding Level of Care Code 83896 INT INP/OBS CARE 3/75MIN Diagnoses Pleural effusion J90 Pericardial effusion I31.39 Atrial fibrillation, new onset I48.91 Pulmonary hypertension I27.20
[2025-03-15] MEDS: FUROSEMIDE INJ 20 MG/2 ML VIAL IV ONE (20:20)
[2025-03-15] MEDS: ALBUMIN 25% 25 GM/100 ML VIAL IV ONE (20:20)
[2025-03-15 21:17] LABS: Appearance Urine Clear (Clear); Glucose Urine UA Negative (Negative)
[2025-03-15] MEDS ORDERED: FLUTICASONE PROPIONATE NA SPR 16 GM BTL NAE PRN (22:06)
[2025-03-15] MEDS ORDERED: ONDANSETRON INJ 2 MG/ML 2 ML VIAL IV PRN (22:06)
[2025-03-15] MEDS ORDERED: LORATADINE 10 MG TAB PO PRN (22:06)
[2025-03-15] MEDS ORDERED: ACETAMINOPHEN 1000 MG/100 ML IV IV PRN (22:06)
[2025-03-15] MEDS ORDERED: [UNRECOGNIZED DRUG - OTHER] PO SCH (22:06)
[2025-03-15] MEDS: COLCHICINE 0.6 MG TAB PO SCH (23:23)
[2025-03-15] MEDS: MoRPHine SULFATE 2 MG/ML CARP IV STA (23:43)
[2025-03-16] MEDS: ACETAMINOPHEN 10MG/ML Custom 650 MG in EMPTY BAG 0 ML IV PRN (02:25)
[2025-03-16] MEDS: LEVOTHYROXINE SODIUM 50 MCG TABLET PO SCH (05:50)
--- NOTE | 2025-03-16 07:09 | Hospitalist Progress Note ---
Date of Service March 16, 2025 Assessment & Plan (1) Pleural effusion: (2) Pericardial effusion: (3) Atrial fibrillation, new onset: (4) Pulmonary hypertension: (5) Scleroderma: (6) Systemic sclerosis with limited cutaneous involvement: Plan In summary this is a 75-year-old female who presents with somatic complaints of bilateral shoulder discomfort which is likely consequential of recurrent bilateral pleural effusions The patient is anticipated to undergo thoracentesis with pulmonology on 03/16; there was discussion of the potential need for a right heart catheterization to further determine the patient's pulmonary hypertension and its cause however there is a right heart catheterization available from [facility] from 2022, this was conveyed to Dr. Rod; furthermore the patient's pericardial effusion is not hemodynamically significant, cardiology does not intend at this time to pursue any pericardiocentesis; suspect that this is likely progressive and consequential of the patient's systemic sclerosis, management of this is detailed below Continue acetaminophen 1000 mg IV every 8 hours Continue indomethacin 25 mg p.o. 3 times daily Continue colchicine 0.6 mg p.o. twice daily Maintain O2 saturation greater than 94% with oxygen supplementation given the patient's suspected primary pulmonary hypertension by WHO criteria Cardiology and pulmonology consulted Admission and Anticipated Discharge Date Admission Date: March 15, 2025 Anticipated date of discharge: 03/18/25 Subjective Ms. Bryant is a 75-year-old female whose active medical conditions include systemic sclerosis, scleroderma, paroxysmal atrial fibrillation, suspected primary pulmonary hypertension among other chronic medical conditions who presented to [facility] on 03/15 due to progressive bilateral shoulder and upper extremity discomfort. No acute overnight events; the patient was found to have bilateral pulmonary effusions with a small pericardial effusion that are being further evaluated today. At the time my evaluation she continues to experience some shoulder discomfort, however this is not progressed nor does she endorse any new symptomatology on review of systems since admission. Review of Systems Review of Systems: Review of constitutional, pulmonary, cardiovascular, musculoskeletal, gastrointestinal systems was unremarkable Physical Exam Physical Exam: General: Elderly, frail-appearing female in no acute distress Vital Signs: Reviewed HEENT: Extraocular motion intact; pupils equally round reactive to light Pulmonary: Slightly restricted but symmetric chest wall excursion with inhalation secondary to body habitus; clear to auscultation bilaterally Cardiovascular: Regular rate and rhythm without murmurs, rubs, or gallops; S1 and S2 normal; bilateral radial and posterior tibial pulse 2+ without notable lower extremity edema Results & Data Results & Data Vital Signs (Past 12 Hours) Vital Signs Temp Pulse Pulse Resp BP BP Pulse Ox 03/16/25 04:28 36.7 C 66 17 91/50 L 91 03/15/25 23:29 73 96/52 L 03/15/25 22:56 64 100/62 03/15/25 22:56 63 110/64 03/15/25 22:22 03/15/25 22:07 63 03/15/25 22:06 36.4 C L 63 16 110/64 100 03/15/25 22:05 36.4 C L 63 16 110/64 100 03/15/25 21:07 69 25 H 107/65 97 03/15/25 19:20 76 17 105/60 98 O2 Del Method 03/16/25 04:28 Room Air 03/15/25 23:29 03/15/25 22:56 03/15/25 22:56 03/15/25 22:22 Room Air 03/15/25 22:07 03/15/25 22:06 Room Air 03/15/25 22:05 Room Air 03/15/25 21:07 Room Air 03/15/25 19:20 Room Air PG Care Time/CCT Total # of Minutes Spent Total Time Spent with Patient: Total time spent is greater than 50% in coordination of care (as documented) at patient's floor/unit and/or counseling patient: Coding Level of Care Code 74950 SUB INP/OBS CARE 2/35MIN Diagnoses Pleural effusion J90 Pericardial effusion I31.39 Atrial fibrillation, new onset I48.91 Pulmonary hypertension I27.20 Scleroderma M34.9 Systemic sclerosis with limited cutaneous involvement M34.9
[2025-03-16 07:13] LABS: Hematocrit (blood only) 37.8 % (37.0-47.0); Hemoglobin 12.1 g/dl (12.0-16.0); Immature Granulocytes # (auto) 0.02 K/uL (0.01-0.20); Immature Granulocytes % (auto) 0.4 %; Mean Corpuscular Hemoglobin 30.0 pg (25.0-34.0); Mean Corpuscular Volume 93.8 fL (80.0-100.0); Platelet Count 41 K/uL (130-400); RDW Standard Deviation 52.8 fL (36.4-46.3); Red Blood Count 4.03 M/uL (4.20-5.40); White Blood Count 5.30 K/ul (4.8-10.8)
[2025-03-16 07:36] LABS: Alanine Aminotransferase 16.0 U/L (7-52); Albumin Globulin Ratio 1.6 (0.9-2); Alkaline Phosphatase 73.0 U/L (34-104); Anion Gap 5.0 (3-11); Bilirubin,Total 2.3 mg/dl (0.2-1.0); Blood Urea Nitrogen 27.0 mg/dl (6-23); Calcium 8.7 mg/dl (8.6-10.3); Carbon Dioxide 27.0 mmol/L (21-32); Chloride 108.0 mmol/L (98-107); Creatinine Clr Calc Pharmacy 26.5 ml/min; Globulin 2.1 gm/dl (2.5-4.0); Glucose 100.0 mg/dl (70-99(Fasting)); Magnesium 1.9 mg/dl (1.7-2.4); Potassium 3.7 mmol/L (3.5-5.1); Sodium 140.0 mmol/L (136-145); Total Protein 5.4 gm/dl (6.0-8.3)
--- NOTE | 2025-03-16 08:24 | Pulmonary Consultation ---
Date of Consultation March 16, 2025 Assessment & Plan (1) Pleural effusion: (2) Pericardial effusion: (3) Pulmonary hypertension: Plan 75-year-old female admitted to the hospital for shortness of breath. Pulmonary consulted for pleural effusion Past medical history: Limited scleroderma/crest syndrome, history of ITP, pericardial effusion s/p pericardiocentesis 12/14/2024, hypothyroidism, GERD, A- fib on Eliquis CT chest 03/15/2025 personally reviewed: Centrilobular nodularities appreciated bilaterally Moderate left-sided pleural effusion, small right-sided pleural effusion Pericardial effusion Mediastinal lymphadenopathy especially station 4R 2D echo 03/16/2025: EF 55-60 %, RV moderately dilated with mildly reduced systolic function, RVSP > 60 mmHg, moderate pericardial effusion -- Left-sided pleural effusion Moderate S/p left-sided thoracentesis 02/20/2025, 425 mL of serous fluid was removed, transudative as per lights criteria Cytology negative for malignancy, showing moderate acute and chronic inflammation Pleural:LDH 74 , protein less than 3 Serum:LDH 167, protein 5.3 Etiology is not clear Likely from crest syndrome versus pulmonary hypertension BNP 276 -- Pulmonary hypertension In summary with history of limited scleroderma/crest syndrome Primary pulmonary hypertension is very high in differential She will eventually need right heart cath to look at the right-sided pressures and wedge pressure Following which endothelin receptor antagonist as well as PDE 5 inhibitors could be thought of if the wedge is normal Cardiac cath 08/06/2022 at [facility]: RA 2 mmHg PA 40 mm Hg, mean 22 PVR 4.71 Celaya unit RV 40 mmHg PCWP 6 cardiac index 2.21 L/min/m --History of pulmonary nodules with abnormal chest CT Documented on the CAT scan of the chest on 02/18/2025 Measuring up to 3.5 mm Patient seems to have centrilobular opacities given the history of crest syndrome I still recommend an HRCT to be done as an outpatient Patient does have history of social smoking never a heavy smoker, quit at the age of 60 --Pericardial effusion S/p pericardiocentesis with removal of 290 mL of fluid on 12/12/2024 Negative for malignancy but culture did grew gram-positive cocci in clusters --A-fib Supposed to on Eliquis but has not started taking it yet Plan: Patient's right heart cath from July 2022 does show elevated pulmonary pressures with normal wedge going to his primary pulmonary hypertension I think endothelin receptor antagonist as well as PDE 5 inhibitors could be thought of if the wedge is normal PDE 5 inhibitors could be started while in the hospital. Outpatient I would recommend combination of macitentan/tadalafil. Right now I would recommend to diurese the patient to keep the patient negative balance Will give 20 mg of Lasix Recommend strict ins and outs. Given the pleural fluid showed acute on chronic inflammation would recommend colchicine as well as NSAIDs for at least 2-3 weeks with pantoprazole Case discussed with primary team as well as RN at bedside Recommend HRCT as well as full PFT to be done as an outpatient I spent more than 75 minutes looking in the chart, images, discussing the plan of care with the patient, RN as well as primary team Please note the above document was generated using voice recognition software. It may contain grammatical, syntax or spelling errors.Any formal questions or concerns about the content, text or information contained within the body of this dictation should be directly addressed to the provider for clarification. History of Present Illness Attending Physician: Collin Kc DO History of Present Illness 75-year-old female admitted to the hospital for shortness of breath. Pulmonary consulted for pleural effusion Past medical history: Limited scleroderma/crest syndrome, history of ITP, pericardial effusion s/p pericardiocentesis 12/14/2024, hypothyroidism, GERD, A- fib on Eliquis No headache, no blurry vision No dysuria, no diarrhea Denies any fever or chills Does have Raynaud's, no other autoimmune diseases or family that she is aware of Social history: Used to smoke socially a cigarette a day, quit around the age of 60 Has dogs at home. No personal or family history of asthma No history of lung cancer in the family Allergies Allergy/AdvReac Type Severity Reaction Status Date / Time No Known Drug Allergies Allergy Verified 03/13/25 14:04 Home Medications Medication Instructions Recorded Confirmed Type fluticasone propionate 50 1 spray intranasal DAILY PRN Nasal 04/22/21 03/15/25 History mcg/actuation nasal congestion spray,suspension (Flonase Allergy Relief) calcium carbonate (Calcium 600) 1,200 mg PO QAM 06/06/24 03/15/25 History multivitamin 1 tab PO QAM 06/06/24 03/15/25 History azelastine 0.05 % eye drops 1 drp ophthalmic (eye) UD 02/19/25 03/15/25 History levothyroxine 50 mcg tablet 50 mcg PO UD 02/19/25 03/15/25 History colchicine 0.6 mg tablet 0.6 mg PO DAILY #30 tabs 02/21/25 03/15/25 Rx capsicum (cayenne) 250 mg capsule 250 mg PO UD 02/22/25 03/15/25 History loratadine 10 mg tablet 10 mg PO DAILY PRN Allergy Symptoms 02/22/25 03/15/25 History magnesium 200 mg tablet 200 mg PO QAM 02/22/25 03/15/25 History apixaban 2.5 mg tablet (Eliquis) 2.5 mg PO BID #180 tabs 03/14/25 03/15/25 Rx potassium chloride 0 mg PO DAILY 03/15/25 03/15/25 History Patient History Medical History Osteoporosis Thrombocytopenia History of COVID-19 Asthma Scleroderma Restrictive lung disease Raynaud phenomenon Pericardial effusion Hyperlipidemia Dyspnea on exertion Chronic sinusitis Allergic rhinitis Hypothyroidism Surgical History History of placement of ear tubes History of nasal septoplasty Hx of cardiac cath H/O colonoscopy History of delivery Family History Mother Diabetes Sister Breast cancer Denies family history of Ovarian cancer Prostate cancer Myocardial infarction Colorectal cancer Social History Smoking Status: Former smoker Tobacco Type: Cigarettes Age Started Using Tobacco: 18; Age Quit Using Tobacco: 58; packs per day: 0.5; Cigarettes Per Day: half a pack a week; Second Hand Exposure: No; Do You Dip or Chew Tobacco: No; Hx Alcohol Use: No Hx Substance Use: No Preferred Language: Latvian Communication Ability: Effective Visual Impairment: Limited Hearing Ability: Normal International Account Manager Required: No Beliefs That Will Affect Care: None marital status: Current Living Situation: Spouse current occupational status: retired current occupation: retired banker How many Children do You have: 2 Feels Safe at Home: Yes Childhood Exposure to Second-Hand Smoke: No Diet: regular caffeine: Yes during the past year weight has: remained stable Dental Care, Regularly: Yes Physical Activity Frequency: 3-4 Times per Week Seatbelt Use: always Sunscreen Use: Yes Do you think of yourself as: straight/heterosexual Gender Identity: Female Assistive Devices: None Review of Systems 2 Review of Systems: All systems reviewed & are unremarkable except as noted in Subjective Physical Exam 2 Physical Exam: Constitutional: No acute distress HEENT: EOMI, PERRLA Respiratory system: Decreased air entry bilaterally, more decreased on the left side, no wheeze, no rhonchi, positive crackles bilateral lower lobe CVS: S1-S2 positive, no murmurs or gallops Abdomen: Soft, nontender, nondistended, positive bowel sounds x4 Extremities: +2 pulses bilaterally radialis/ dorsalis pedis, no cyanosis, no edema Neuro: Awake alert oriented x3 Psych: Normal mood and affect G/U: No Parra Skin: no rashes, warm and dry Lymphatic: no cervical or axillary lymphadenopathy Results & Data Results & Data Vital Signs (Past 12 Hours) Vital Signs Temp Pulse Pulse Resp BP BP Pulse Ox 03/16/25 08:12 36.7 C 67 18 98/52 L 91 03/16/25 04:28 36.7 C 66 17 91/50 L 91 03/15/25 23:29 73 96/52 L 03/15/25 22:56 64 100/62 03/15/25 22:56 63 110/64 03/15/25 22:22 03/15/25 22:07 63 03/15/25 22:06 36.4 C L 63 16 110/64 100 03/15/25 22:05 36.4 C L 63 16 110/64 100 03/15/25 21:07 69 25 H 107/65 97 O2 Del Method 03/16/25 08:12 Room Air 03/16/25 04:28 Room Air 03/15/25 23:29 03/15/25 22:56 03/15/25 22:56 03/15/25 22:22 Room Air 03/15/25 22:07 03/15/25 22:06 Room Air 03/15/25 22:05 Room Air 03/15/25 21:07 Room Air Laboratory Results 03/16/25 06:38 03/16/25 06:38 PG Care Time/CCT Total # of Minutes Spent Total Time Spent with Patient: Total time spent is greater than 50% in coordination of care (as documented) at patient's floor/unit and/or counseling patient: Coding Level of Care Code 00846 INT INP/OBS CARE 3/75MIN Diagnoses Pleural effusion J90 Pericardial effusion I31.39 Pulmonary hypertension I27.20
[2025-03-16] MEDS: CALCIUM CARBONATE 1250MG TAB PO SCH (08:57)
[2025-03-16] MEDS: MAGNESIUM OXIDE 400 MG TAB PO SCH (08:57)
[2025-03-16] MEDS: MULTIVITAMIN TAB PO SCH (08:58)
--- NOTE | 2025-03-16 09:26 | XCELERA ---
[id number]
[2025-03-16] MEDS ORDERED: ACETAMINOPHEN 1,000 MG/100 ML VIAL IV SCH (09:30)
--- NOTE | 2025-03-16 09:57 | Cardiology Consultation ---
Date of Consultation March 16, 2025 Assessment & Plan (1) Pericardial effusion: (2) Pulmonary hypertension: Plan 1. Pericardial effusion: Recurrent. This appears to wax and wane in size. 1 pericardiocentesis performed in November of this year. She does not appear to have signs of hemodynamic compromise. Blood pressure is relatively low, but heart rate is normal and no elevated pulses paradoxus. Right atrium appears plump on her echocardiogram and there is no plethora of the IVC. This is likely reflective of the relatively chronic nature of her effusion. I did not see any urgent need for drainage at this point. She does not appear to have had much benefit from colchicine. Given her lung disease and the likelihood that this is either a connective tissue or inflammatory process, perhaps intensifying therapy with steroids or more directed treatment of scleroderma would be beneficial. This may in fact allow for resolution of her pericardial effusion. In the absence of improvement or if there is need for additional drainage she could be considered for pericardial window given the recurrent nature of her effusion. 2. Back, neck and shoulder pain: Likely related to her effusions, pleural and/or pericardial. Most likely operations support representative of an inflammatory process. Again, nonsteroidals or steroids would likely improve symptoms as would drainage. She states that similar symptoms resolved with pleural drainage in the past. Not operations support representative of an acute coronary syndrome. History of Present Illness Reason for Consultation: Pericardial effusion Attending Physician: Collin Kc, History of Present Illness The patient is a 75-year-old woman with a history of scleroderma, pulmonary hypertension, recurrent pericardial and pleural effusions who presented to the hospital with symptoms of shoulder neck and back discomfort. The patient states that she was feeling well until the day of presentation when she began to have the symptoms of pain. They are somewhat positional in nature and worse with deep inspiration. She notes a chronic element of dyspnea which is somewhat worse recently. Some more difficulty breathing due to pain with deep inspiration. No symptoms at rest or while lying still. No orthopnea. She is very sedentary, but is able to walk her dogs and perform some light activity with minimal symptom. She does believe that over the past few years her exercise tolerance has declined, primarily due to breathing difficulty. Her history of pericardial effusion dates back several years. This was felt to be related to her scleroderma. The size of the effusion has also waxed and waned in severity. In November of this year the patient presented to [facility] and was transferred to [facility] for a large pericardial effusion and concerns about tamponade. She underwent pericardiocentesis at that institution. She has been on colchicine in an attempt to reduce reaccumulation of fluid. She denies any additional constitutional symptoms recently. No fevers or chills. Again, no pain or breathing difficulty at rest. She has not been aware of any palpitations or racing heartbeat and that she is exerting herself. Mild dizziness when changing positions at times. No presyncope or syncope. Allergies Allergy/AdvReac Type Severity Reaction Status Date / Time No Known Drug Allergies Allergy Verified 03/13/25 14:04 Home Medications Medication Instructions Recorded Confirmed Type fluticasone propionate 50 1 spray intranasal DAILY PRN Nasal 04/22/21 03/15/25 History mcg/actuation nasal congestion spray,suspension (Flonase Allergy Relief) calcium carbonate (Calcium 600) 1,200 mg PO QAM 06/06/24 03/15/25 History multivitamin 1 tab PO QAM 06/06/24 03/15/25 History azelastine 0.05 % eye drops 1 drp ophthalmic (eye) UD 02/19/25 03/15/25 History levothyroxine 50 mcg tablet 50 mcg PO UD 02/19/25 03/15/25 History colchicine 0.6 mg tablet 0.6 mg PO DAILY #30 tabs 02/21/25 03/15/25 Rx capsicum (cayenne) 250 mg capsule 250 mg PO UD 02/22/25 03/15/25 History loratadine 10 mg tablet 10 mg PO DAILY PRN Allergy Symptoms 02/22/25 03/15/25 History magnesium 200 mg tablet 200 mg PO QAM 02/22/25 03/15/25 History apixaban 2.5 mg tablet (Eliquis) 2.5 mg PO BID #180 tabs 03/14/25 03/15/25 Rx potassium chloride 0 mg PO DAILY 03/15/25 03/15/25 History Patient History Medical History Osteoporosis Thrombocytopenia History of COVID-19 Asthma Scleroderma Restrictive lung disease Raynaud phenomenon Pericardial effusion Hyperlipidemia Dyspnea on exertion Chronic sinusitis Allergic rhinitis Hypothyroidism Surgical History History of placement of ear tubes History of nasal septoplasty Hx of cardiac cath H/O colonoscopy History of delivery Family History Mother Diabetes Sister Breast cancer Denies family history of Ovarian cancer Prostate cancer Myocardial infarction Colorectal cancer Social History Smoking Status: Former smoker Tobacco Type: Cigarettes Age Started Using Tobacco: 18; Age Quit Using Tobacco: 58; packs per day: 0.5; Cigarettes Per Day: half a pack a week; Second Hand Exposure: No; Do You Dip or Chew Tobacco: No; Hx Alcohol Use: No Hx Substance Use: No Preferred Language: Argentine Communication Ability: Effective Visual Impairment: Limited Hearing Ability: Normal Cras Required: No Beliefs That Will Affect Care: None marital status: Current Living Situation: Spouse current occupational status: retired current occupation: retired banker How many Children do You have: 2 Feels Safe at Home: Yes Childhood Exposure to Second-Hand Smoke: No Diet: regular caffeine: Yes during the past year weight has: remained stable Dental Care, Regularly: Yes Physical Activity Frequency: 3-4 Times per Week Seatbelt Use: always Sunscreen Use: Yes Do you think of yourself as: straight/heterosexual Gender Identity: Female Assistive Devices: None Review of Systems Review of Systems: Per HPI Physical Exam Physical Exam: She is alert and oriented x3. Mood affect appear normal. She answered all questions appropriately. HEENT: Sclerae are anicteric. Pupils are equal and reactive to light and accommodation. Extraocular movements were intact. Neuro: Cranial nerves intact Lungs: Lungs are clear to auscultation bilaterally. There are no rales wheezes or rhonchi. She has normal respiratory effort without use of accessory muscles. There is normal pulmonary excursion. Cardiac: The rhythm was regular. S1 and S2 were normal. There are no murmurs on examination. The PMI was not markedly displaced on palpation. Extremities: Patient has bilateral radial pulses that are equal in intensity. There is no evidence cyanosis or clubbing. There was no evidence of significant peripheral edema bilaterally. Skin: There are no rashes noted on examination today. Normal pulses paradoxus, less than 10 mmHg. Results & Data Vital Signs (Past 12 Hours) Vital Signs Temp Pulse Pulse Resp BP BP Pulse Ox 03/16/25 08:12 36.7 C 67 18 98/52 L 91 03/16/25 08:00 03/16/25 04:28 36.7 C 66 17 91/50 L 91 03/15/25 23:29 73 96/52 L 03/15/25 22:56 64 100/62 03/15/25 22:56 63 110/64 03/15/25 22:22 03/15/25 22:07 63 03/15/25 22:06 36.4 C L 63 16 110/64 100 03/15/25 22:05 36.4 C L 63 16 110/64 100 O2 Del Method 03/16/25 08:12 Room Air 03/16/25 08:00 Room Air 03/16/25 04:28 Room Air 03/15/25 23:29 03/15/25 22:56 03/15/25 22:56 03/15/25 22:22 Room Air 03/15/25 22:07 03/15/25 22:06 Room Air 03/15/25 22:05 Room Air Laboratory Results Abnormal Lab Results 03/15/25 03/15/25 03/15/25 17:15 17:35 18:19 WBC 7.43 RBC 4.87 Hgb 14.7 Hct 45.5 MCV 93.4 MCH 30.2 MCHC 32.3 RDW Std Deviation 51.8 H RDW Coeff of Ward 15.0 H Plt Count 53 L MPV Immature Gran % (Auto) 0.4 Neut % (Auto) 87.1 Lymph % (Auto) 6.5 Pope % (Auto) 5.4 Eos % (Auto) 0.3 Baso % (Auto) 0.3 Neut # (Auto) 6.48 Lymph # (Auto) 0.48 L Pope # (Auto) 0.40 Eos # (Auto) 0.02 Baso # (Auto) 0.02 Immature Gran # (Auto) 0.03 ESR 6 D-Dimer 530 H* Sodium TNP 139 Potassium TNP 4.2 Chloride 109 H Carbon Dioxide 23 Anion Gap TNP BUN 28 H Creatinine 0.96 Est Cr Clr Drug Dosing Not Reportable eGFR 60.94 BUN/Creatinine Ratio 29.2 H Glucose 116 H Calcium 8.9 Magnesium Total Bilirubin 1.7 H AST TNP 24 ALT 23 Alkaline Phosphatase 105 H Troponin I High Sens 7.0 B-Natriuretic Peptide 276 H Total Protein 6.5 Albumin 3.6 Globulin 2.9 Albumin/Globulin Ratio 1.2 Urine Color Urine Appearance Urine pH Ur Specific [place] Urine Protein Urine Glucose (UA) Urine Ketones Urine Blood Urine Nitrite Urine Bilirubin Urine Urobilinogen Ur Leukocyte Esterase Urine Comment 03/15/25 03/16/25 21:07 06:38 WBC 5.30 RBC 4.03 L Hgb 12.1 Hct 37.8 MCV 93.8 MCH 30.0 MCHC 32.0 RDW Std Deviation 52.8 H RDW Coeff of Ward 15.3 H Plt Count 41 L MPV 14.4 H Immature Gran % (Auto) 0.4 Neut % (Auto) 74.5 Lymph % (Auto) 16.0 Pope % (Auto) 8.5 Eos % (Auto) 0.4 Baso % (Auto) 0.2 Neut # (Auto) 3.95 Lymph # (Auto) 0.85 L Pope # (Auto) 0.45 Eos # (Auto) 0.02 Baso # (Auto) 0.01 Immature Gran # (Auto) 0.02 ESR D-Dimer Sodium 140 Potassium 3.7 Chloride 108 H Carbon Dioxide 27 Anion Gap 5 BUN 27 H Creatinine 1.13 Est Cr Clr Drug Dosing 26.5 eGFR 50.11 BUN/Creatinine Ratio 23.9 H Glucose 100 H Calcium 8.7 Magnesium 1.9 Total Bilirubin 2.3 H AST 21 ALT 16 Alkaline Phosphatase 73 Troponin I High Sens B-Natriuretic Peptide Total Protein 5.4 L Albumin 3.3 L Globulin 2.1 L Albumin/Globulin Ratio 1.6 Urine Color Yellow Urine Appearance Clear Urine pH 5.0 Ur Specific [place] 1.030 Urine Protein Negative Urine Glucose (UA) Negative Urine Ketones Negative Urine Blood Negative Urine Nitrite Negative Urine Bilirubin Negative Urine Urobilinogen Negative Ur Leukocyte Esterase Negative Urine Comment Diagnostic Findings Echocardiogram 03/16/2025: Normal LV systolic function. Moderate RV dilation with mildly reduced RV systolic function. Severely dilated right atrium. Mild to moderate tricuspid regurgitation with markedly elevated pulmonary pressures estimated greater than 60 mmHg. Moderate size pericardial effusion and moderat e-sized left pleural effusion. Chest CTA 03/15/2025: No definite pulmonary embolus. Bilateral lower lobe atelectasis. Left larger than right pleural effusions. Pericardial effusion. PG Care Time/CCT Total # of Minutes Spent Total Time Spent with Patient: Total time spent is greater than 50% in coordination of care (as documented) at patient's floor/unit and/or counseling patient: Coding Level of Care Code 91774 INT INP/OBS CARE 375MIN Diagnoses Pericardial effusion I31.39 Pulmonary hypertension I27.20
[2025-03-16] MEDS: ACETAMINOPHEN 10MG/ML Custom 650 MG in EMPTY BAG 0 ML IV SCH (11:00)
--- NOTE | 2025-03-16 12:15 | Procedure Note ---
Procedure Note Date of Service March 16, 2025 Bedside Ultrasound: Lung: Right:-Minimal right-sided pleural effusion with curtain sign Left:-Small left-sided pleural effusion with dependent atelectasis Heart: Moderate pericardial effusion Please note the above document was generated using voice recognition software. It may contain grammatical, syntax or spelling errors.Any formal questions or concerns about the content, text or information contained within the body of this dictation should be directly addressed to the provider for clarification. [facility] [place]odes (Charges) Pulmonary/Thoracic Procedure 1: Pulmonary and Thoracic: 17338 US, Chest, real time with imaging documentation Coding CPT Codes Pulmonary/Thoracic - Pulmonary and Thoracic: 29240 US, Chest, real time with imaging documentation ([id number]) Additional Codes Date of Service (PG.SURGERY)
[2025-03-16] MEDS: INDOMETHACIN 25 MG CAP PO SCH (15:05)
[2025-03-16] MEDS: FUROSEMIDE INJ 20 MG/2 ML VIAL IV ONE (21:05)
[2025-03-17] MEDS: LEVOTHYROXINE SODIUM 50 MCG TABLET PO SCH (06:32)
--- NOTE | 2025-03-17 07:23 | Electrocardiogram Report ---
Test Reason : Blood Pressure : */* mmHG Vent. Rate : 76 BPM Atrial Rate : 76 BPM P-R Int : 134 ms QRS Dur : 70 ms QT Int : 384 ms P-R-T Axes : -20 -7 -20 degrees QTcB Int : 432 ms Normal sinus rhythm Low voltage QRS Cannot rule out Inferior infarct , age undetermined Nonspecific ST abnormality Abnormal ECG Confirmed by Bulmaro Reynolds ([id number]) on 03/17/2025 7:22:42 AM Referred By: REFERRED SELF Confirmed By: Bulmaro Reynolds
[2025-03-17 07:26] LABS: Hematocrit (blood only) 36.4 % (37.0-47.0); Hemoglobin 12.4 g/dl (12.0-16.0); Mean Corpuscular Hemoglobin 31.3 pg (25.0-34.0); Mean Corpuscular Volume 91.9 fL (80.0-100.0); Platelet Count 40 K/uL (130-400); RDW Standard Deviation 50.7 fL (36.4-46.3); Red Blood Count 3.96 M/uL (4.20-5.40); White Blood Count 4.00 K/ul (4.8-10.8)
--- NOTE | 2025-03-17 07:29 | Electrocardiogram Report ---
Test Reason : Blood Pressure : */* mmHG Vent. Rate : 73 BPM Atrial Rate : 73 BPM P-R Int : 148 ms QRS Dur : 80 ms QT Int : 404 ms P-R-T Axes : 69 48 49 degrees QTcB Int : 445 ms Normal sinus rhythm Nonspecific ST abnormality When compared with ECG of 15-Mar-2025 17:27, (unconfirmed) Minimal criteria for Inferior infarct are no longer Present Nonspecific T wave abnormality, improved in Inferior leads Nonspecific T wave abnormality no longer evident in Anterior leads Confirmed by Bulmaro Reynolds ([id number] on 03/17/2025 7:29:06 AM Referred By: REFERRED SELF Confirmed By: Bulmaro Reynolds
--- NOTE | 2025-03-17 07:42 | Hospitalist Progress Note ---
Date of Service March 17, 2025 Assessment & Plan (1) WHO group 1 pulmonary arterial hypertension: (2) Pleural effusion: (3) Pericardial effusion: (4) Atrial fibrillation, new onset: (5) Scleroderma: (6) Systemic sclerosis with limited cutaneous involvement: (7) Thrombocytopenia: Plan In summary this is a 75-year-old female who presents with somatic complaints of bilateral shoulder discomfort which is likely consequential of recurrent bilateral pleural effusions S/p thoracentesis 03/16; RHC from [facility] performed 07/2022 reviewed by pulmonology, condition is consistent with WHO group 1 PAH; furthermore the patient's pericardial effusion is not hemodynamically significant, cardiology does not intend at this time to pursue any pericardiocentesis; suspect that this is likely progressive and consequential of the patient's systemic sclerosis, management of this is detailed below Continue indomethacin 25 mg p.o. 3 times daily Continue colchicine 0.6 mg p.o. twice daily Pulmonology recommends initiation of PDE 5 inhibitors during her hospitalizat ion, after adequate diuresis; dual therapy with PDE5i/endothelin receptor antagonists can be pursued in the outpatient setting Hold acetaminophen 1000 mg IV every 8 hours, symptoms have markedly improved Maintain O2 saturation greater than 94% with oxygen supplementation given the patient's suspected primary pulmonary hypertension by WHO criteria Cardiology and pulmonology consulted Admission and Anticipated Discharge Date Admission Date: March 15, 2025 Anticipated date of discharge: 03/18/25 Subjective Ms. Bryant is a 75-year-old female whose active medical conditions include systemic sclerosis, scleroderma, paroxysmal atrial fibrillation, suspected primary pulmonary hypertension among other chronic medical conditions who presented to [facility] on 03/15 due to progressive bilateral shoulder and upper extremity discomfort. No acute overnight events; pain is much improved today compared to 03/16. She is voiding independently, unfortunately I/O have not been regularly documented. Review of Systems Review of Systems: Review of constitutional, pulmonary, cardiovascular, musculoskeletal, gastrointestinal systems was unremarkable Physical Exam Physical Exam: General: Elderly, frail-appearing female in no acute distress Vital Signs: Reviewed HEENT: Extraocular motion intact; pupils equally round reactive to light Pulmonary: Slightly restricted but symmetric chest wall excursion with inhalation secondary to body habitus; clear to auscultation bilaterally Cardiovascular: Regular rate and rhythm without murmurs, rubs, or gallops; S1 and S2 normal; bilateral radial and posterior tibial pulse 2+ without notable lower extremity edema Results & Data Results & Data Vital Signs (Past 12 Hours) Vital Signs Temp Pulse Pulse Resp BP Pulse Ox O2 Del Method 03/17/25 03:50 36.5 C 61 17 104/62 90 Room Air 03/16/25 23:52 36.5 C 61 16 97/59 L 90 Room Air 03/16/25 22:11 66 03/16/25 21:05 66 98/55 L 03/16/25 20:30 63 90/50 L 03/16/25 20:00 Room Air 03/16/25 19:55 36.5 C 59 L 17 103/62 90 Room Air Laboratory Results Remains thrombocytopenic though improved to 40,000; further remains leukopenic with a measure of 4.0, not significantly changed from previous days. PG Care Time/CCT Total # of Minutes Spent Total Time Spent with Patient: Total time spent is greater than 50% in coordination of care (as documented) at patient's floor/unit and/or counseling patient: Coding Level of Care Code 08245 SUB INP/OBS CARE 2/35MIN Diagnoses WHO group 1 pulmonary arterial hypertension I27.21 Pleural effusion J90 Pericardial effusion I31.39 Atrial fibrillation, new onset I48.91 Scleroderma M34.9 Systemic sclerosis with limited cutaneous involvement M34.9 Thrombocytopenia D69.6
--- NOTE | 2025-03-17 09:55 | Cardiology Progress Note ---
Date of Service March 17, 2025 Assessment & Plan (1) Pericardial effusion: (2) Pulmonary hypertension: Plan 1. Pericardial effusion: Recurrent. Likely related to her underlying connective tissue or inflammatory process. There does not appear to be any hemodynamic compromise despite an increase in size over the past few weeks. Hopefully with institution of nonsteroidal medication we can hope for some resolution. I discussed symptoms of which to be aware of with the patient. I think she would be safe for discharge with close follow-up in the clinic to monitor any progression or resolution of her pericardial effusion. 2. Back, neck and shoulder pain: Resolved. Likely inflammatory given resolution with nonsteroidal medication. 3. Thrombocytopenia: Possibly related to an underlying inflammatory connective tissue process. 4. Atrial fibrillation: Seen during her hospitalization over the summer. However, no known recurrence. Currently wearing a monitor for evaluation. No atrial fibrillation seen during her inpatient stay. Given her need for nonsteroidal medication over the next few weeks, I would defer starting her anticoagulation unless she is known to have additional episodes on her outpatient monitor (we will follow this in the clinic). Admission and Anticipated Discharge Date Admission Date: March 15, 2025 Subjective This morning patient claims of feeling quite well. She states that she has had resolution of her back and neck discomfort. She reports being ambulatory around her room without dizziness or lightheadedness. Some mild dyspnea at times but not limited anxious for discharge. Review of Systems Review of Systems: Per HPI Physical Exam Physical Exam: She is alert and oriented x3. Mood affect appear normal. She answered all questions appropriately. HEENT: Sclerae are anicteric. Pupils are equal and reactive to light and accommodation. Extraocular movements were intact. Neuro: Cranial nerves intact Lungs: Normal respiratory effort. No rales. Some reduced breath sounds at the left base. Cardiac: The rhythm was regular. S1 and S2 were normal. There are no murmurs on examination. The PMI was not markedly displaced on palpation. Extremities: Patient has bilateral radial pulses that are equal in intensity. There is no evidence cyanosis or clubbing. There was no evidence of significant peripheral edema bilaterally. Skin: There are no rashes noted on examination today. Results & Data Vital Signs (Past 12 Hours) Vital Signs Temp Pulse Pulse Resp BP Pulse Ox O2 Del Method 03/17/25 08:10 36.8 C 65 18 99/58 L 98 Room Air 03/17/25 03:50 36.5 C 61 17 104/62 90 Room Air 03/16/25 23:52 36.5 C 61 16 97/59 L 90 Room Air 03/16/25 22:11 66 Laboratory Results Abnormal Lab Results 03/16/25 03/17/25 06:38 06:18 WBC 4.00 L RBC 3.96 L Hgb 12.4 Hct 36.4 L MCV 91.9 MCH 31.3 MCHC 34.1 RDW Std Deviation 50.7 H RDW Coeff of Ward 14.9 H Plt Count 40 L MPV 14.9 H C-Reactive Protein 9.57 H PG Care Time/CCT Total # of Minutes Spent Total Time Spent with Patient: Total time spent is greater than 50% in coordination of care (as documented) at patient's floor/unit and/or counseling patient: Coding Level of Care Code 31881 SUB INP/OBS CARE 235MIN Diagnoses Pericardial effusion I31.39 Pulmonary hypertension I27.20
--- NOTE | 2025-03-17 11:14 | Pulmonology Progress Note ---
Date of Service March 17, 2025 Assessment & Plan (1) Pleural effusion: (2) Pericardial effusion: (3) Pulmonary hypertension: Plan 75-year-old female admitted to the hospital for shortness of breath. Pulmonary consulted for pleural effusion Past medical history: Limited scleroderma/crest syndrome, history of ITP, pericardial effusion s/p pericardiocentesis 12/14/2024, hypothyroidism, GERD, A- fib on Eliquis CT chest 03/15/2025 personally reviewed: Centrilobular nodularities appreciated bilaterally Moderate left-sided pleural effusion, small right-sided pleural effusion Pericardial effusion Mediastinal lymphadenopathy especially station 4R 2D echo 03/16/2025: EF 55-60 %, RV moderately dilated with mildly reduced systolic function, RVSP > 60 mmHg, moderate pericardial effusion -- Bilateral pleural effusion Small left-sided, minimal right-sided S/p left-sided thoracentesis 02/20/2025, 425 mL of serous fluid was removed, transudative as per lights criteria Cytology negative for malignancy, showing moderate acute and chronic inflammation Pleural:LDH 74 , protein less than 3 Serum:LDH 167, protein 5.3 Etiology is not clear Likely from crest syndrome versus pulmonary hypertension BNP 276 -- Pulmonary hypertension In summary with history of limited scleroderma/crest syndrome Primary pulmonary hypertension is very high in differential She will eventually need right heart cath to look at the right-sided pressures and wedge pressure Following which endothelin receptor antagonist as well as PDE 5 inhibitors could be thought of if the wedge is normal Cardiac cath 08/06/[address] [facility]: RA 2 mmHg PA 40 mm Hg, mean 22 PVR 4.71 [employer] unit RV 40 mmHg PCWP 6 cardiac index 2.21 L/min/m --History of pulmonary nodules with abnormal chest CT Documented on the CAT scan of the chest on 02/18/2025 Measuring up to 3.5 mm Patient seems to have centrilobular opacities given the history of crest syndrome I still recommend an HRCT to be done as an outpatient Patient does have history of social smoking never a heavy smoker, quit at the age of 60 --Pericardial effusion S/p pericardiocentesis with removal of 290 mL of fluid on 12/12/2024 Negative for malignancy but culture did grew gram-positive cocci in clusters --A-fib Supposed to on Eliquis but has not started taking it yet Plan: Patient's right heart cath from July 2022 does show elevated pulmonary pressures with normal wedge going to his primary pulmonary hypertension I think endothelin receptor antagonist as well as PDE 5 inhibitors could be thought of if the wedge is normal Given the patient's soft blood pressure I think it is best to give trial of medication as an outpatient She is going to follow-up with me in the clinic in the near future. Did have some LOUISE on the latest labs from today. Recommend some IV fluid before discharge. Given the chronically low platelets and today being 40 I do not think it is safe to perform thoracentesis. Would recommend her to keep a close eye on her weight, if there is increasing weight by 1 or 2 pounds it is likely fluid and she can take Lasix at that time. Given the pleural fluid showed acute on chronic inflammation would recommend colchicine as well as NSAIDs for at least 2-3 weeks with pantoprazole I do think the patient symptoms are inflammatory in origin with underlying autoimmune disease being a part I will forward this note to rheumatology as well. Case discussed with primary team as well as RN at bedside Recommend HRCT as well as full PFT to be done as an outpatient Case was discussed with primary team, message also sent to rheumatology. Please note the above document was generated using voice recognition software. It may contain grammatical, syntax or spelling errors.Any formal questions or concerns about the content, text or information contained within the body of this dictation should be directly addressed to the provider for clarification. Admission and Anticipated Discharge Date Admission Date: March 15, 2025 Subjective Patient seen and examined at bedside. No acute distress, no adverse events overnight She was saturating well on room air Patient's was also in the room She says that pain that she came in with has resolved She also had 2 labs of [address] without any issues with her breathing. Denies any nausea or vomiting Fair appetite She was asking if she could go home Review of Systems 2 Review of Systems: All systems reviewed & are unremarkable except as noted in Subjective Physical Exam 2 Physical Exam: Constitutional: No acute distress HEENT: EOMI, PERRLA Respiratory system: Decreased air entry bilaterally, more decreased on the left side, no wheeze, no rhonchi, positive crackles bilateral lower lobe CVS: S1-S2 positive, no murmurs or gallops Abdomen: Soft, nontender, nondistended, positive bowel sounds x4 Extremities: +2 pulses bilaterally radialis/ dorsalis pedis, no cyanosis, no edema Neuro: Awake alert oriented x3 Psych: Normal mood and affect G/U: No Parra Skin: no rashes, warm and dry Lymphatic: no cervical or axillary lymphadenopathy Results & Data Results & Data Vital Signs (Past 12 Hours) Vital Signs Temp Pulse Resp BP Pulse Ox O2 Del Method 03/17/25 08:10 36.8 C 65 18 99/58 L 98 Room Air 03/17/25 08:00 Room Air 03/17/25 03:50 36.5 C 61 17 104/62 90 Room Air 03/16/25 23:52 36.5 C 61 16 97/59 L 90 Room Air Laboratory Results 03/17/25 06:18 03/16/25 06:38 PG Care Time/CCT Total # of Minutes Spent Total Time Spent with Patient: Total time spent is greater than 50% in coordination of care (as documented) at patient's floor/unit and/or counseling patient: Coding Level of Care Code 06310 SUB INP/OBS CARE 2/35MIN Diagnoses Pleural effusion J90 Pericardial effusion I31.39 Pulmonary hypertension I27.20
[2025-03-17 11:17] VITALS: PULSE 62; RESP 17; TEMP 97.9; O2SAT 97
[2025-03-17 12:14] LABS: Alanine Aminotransferase 25.0 U/L (7-52); Albumin Globulin Ratio 1.4 (0.9-2); Alkaline Phosphatase 86.0 U/L (34-104); Anion Gap 6.0 (3-11); Bilirubin,Total 1.9 mg/dl (0.2-1.0); Blood Urea Nitrogen 41.0 mg/dl (6-23); Calcium 8.5 mg/dl (8.6-10.3); Carbon Dioxide 23.0 mmol/L (21-32); Chloride 110.0 mmol/L (98-107); Creatinine Clr Calc Pharmacy 22.9 ml/min; Globulin 2.1 gm/dl (2.5-4.0); Glucose 94.0 mg/dl (70-99(Fasting)); Potassium 3.9 mmol/L (3.5-5.1); Sodium 139.0 mmol/L (136-145); Total Protein 5.0 gm/dl (6.0-8.3)
[2025-03-17] MEDS: ALBUMIN 5% 250 ML IV ONE (12:31)
[2025-03-17 13:22] VITALS: BP 91/50
--- NOTE | 2025-03-17 14:47 | Discharge Summary ---
Discharge Summary Date of Service March 17, 2025 Principal Dx & Hospital Course #1 = Principal Diagnosis (1) WHO group 1 pulmonary arterial hypertension: (2) Pleural effusion: (3) Pericardial effusion: (4) Atrial fibrillation, new onset: (5) Scleroderma: (6) Systemic sclerosis with limited cutaneous involvement: (7) Thrombocytopenia: Plan In summary this is a 75-year-old female who presents with somatic complaints of bilateral shoulder discomfort which is likely consequential of recurrent bilateral pleural effusions Thoracentesis was actually not performed on 03/16, due to confusion in the EMR it was thought to have been performed. Regardless, RHC from [facility] performed 07/2022 reviewed by pulmonology, condition is consistent with WHO group 1 PAH; furthermore the patient's pericardial effusion is not hemodynamically significant, cardiology does not intend at this time to pursue any pericardiocentesis; suspect that this is likely progressive and consequential of the patient's systemic sclerosis, management of this is detailed below Continue indomethacin 25 mg p.o. 3 times daily Continue colchicine 0.6 mg p.o. twice daily Pulmonology recommends initiation of PDE 5 inhibitors in the outpatient setting in combination with endothelin receptor antagonists Maintain O2 saturation greater than 94% with oxygen supplementation given the patient's suspected primary pulmonary hypertension by WHO criteria Cardiology and pulmonology consulted Admission HPI Per Admitting Provider The patient is a 75-year-old female with past medical history including limited scleroderma centromere positive, Raynaud's, telangiectasias, history of ITP, pericardial effusion status post pericardiocentesis which showed a 90 cc of fluid removed on 12/14/[address] [facility], muscle spasms, hypothyroidism, bilateral pleural effusions, paroxysmal atrial fibrillation, and GERD. She presents to the emergency department due to bilateral shoulder pain that developed 2 days ago, and worsened over the past 24 hours. In the emergency department she underwent a CTA chest which was negative for PE, did show bilateral pleural effusions, and moderate-sized pericardial effusion. Her most recent admission was from 02/19-02/21/2025, when she was again found to have bilateral pleural effusions and pericardial effusion, but presented with new onset atrial fibrillation. She presents today in normal sinus rhythm, and normal breathing, but primarily complains of bilateral shoulder pain is worse when she takes a deep breath. Discharge Exam General: Elderly, frail-appearing female in no acute distress Vital Signs: Reviewed HEENT: Extraocular motion intact; pupils equally round reactive to light Pulmonary: Slightly restricted but symmetric chest wall excursion with inhalation secondary to body habitus; clear to auscultation bilaterally Cardiovascular: Regular rate and rhythm without murmurs, rubs, or gallops; S1 and S2 normal; bilateral radial and posterior tibial pulse 2+ without notable lower extremity edema Discharge Plan Discharge Items Patient Disposition: Home - Self-Care Reason For Visit: B/L SHOULDER PAIN, B/L PLEURAL EFFUSIONS, PERICARD Discharge Diagnosis: WHO Group 1 PAH, recurrent pleural and pericardial effusions Condition on Discharge: Fair Activity: Per Instructions section Non-emergency contact: Primary Care Provider, [employer] C[employer] Call non-emergency contact if: you have any medication questions, your symptoms worsen, your pain is worsening and your pain is unusual for you Follow-up/Referrals: Talat Astorga MD [Physician] - Daniel Rod MD, [facility] [Physician] - Kriss Larsen DO [Primary Care Provider] - Diet: Regular Fluids: 1800ml (7 cups) Addtl Attending Provider Instructions: You were admitted to [facility] for persistent bilateral shoulder pain and discomfort found to be consequential of recurrent pleural and pericardial effusions. With regard to the presenting complaint, it is suspected this is consequential of these recurrent pleural effusions; after further review of your chart and interventions provided previously, it was determined, through pulmonology consultation that you have Group 1 pulmonary arterial hypertension. Pulmonology recommends initiation of 2 different medications for chronic control of this condition however they will be initiated in the outpatient setting. In the process of removing these effusions, we administered a loop diuretic which helps you void this volume overload. In the process your creatinine slightly geovanny on the day of discharge, this is why you were provided with intra venous fluids prior to discharge and we will reassess this 3 to 4 days after your discharge. Please continue indomethacin 25 mg p.o. 3 times daily, colchicine, and pantoprazole for protection against any gastric injury related to these medications. Please follow closely with pulmonology after discharge. Thank you for choosing [facility] as your healthcare provider. Pending Studies at Discharge: No Stand-Alone Forms: My [facility] Medications and DC Order Prescriptions: New indomethacin [Indocin] 25 mg/5 mL Suspension 25 mg PO TID 14 Days Qty: 210 0RF pantoprazole 40 mg Tablet,Delayed Release (Dr/Ec) 40 mg PO QAM 14 Days Qty: 14 0RF Continued fluticasone propionate [Flonase Allergy Relief] 50 mcg/actuation spray,suspension 1 spray INTNAS DAILY PRN (Reason: Nasal congestion) Patient Comments: 03/15- otc/no fill history unable to verify Rx Instructions: administer into each nostril daily Eliquis 2.5 mg tablet 2.5 mg PO BID Qty: 180 3RF magnesium 200 mg tablet 200 mg PO QAM loratadine 10 mg tablet 10 mg PO DAILY PRN (Reason: Allergy Symptoms) multivitamin tablet 1 tab PO QAM Patient Comments: 03/15- otc unable to verify calcium carbonate [Calcium 600] 600 mg calcium (1,500 mg) tablet 1,200 mg PO QAM azelastine 0.05 % drops 1 drp ophthalmic (eye) UD levothyroxine 50 mcg tablet 50 mcg PO UD Rx Instructions: Take 2 tablets by mouth daily 6 days and week and 1 tablet on day seven colchicine 0.6 mg tablet 0.6 mg PO DAILY Qty: 30 0RF potassium chloride 0 mg PO DAILY Patient Comments: OTC unknown dose Discontinued capsicum (cayenne) 250 mg capsule 250 mg PO UD Discharge Orders: Discharge Order (Routine); Ordered 03/17/25 Ordered By: Collin Kc Admission Data Admit Date/Time: 03/15/25 19:58 Attending Provider: Collin Kc Admit Provider: Telly Davalos Primary Care Provider: Kriss Larsen Other Providers: Daniel Rod; Talat Astorga Other Interventions: Discharge Summary Assessment (RN) Last Done: 03/17/25 13:21 Hospital Stay Data Consultations 03/15/25 22:06 Consult Cardiology Routine Consult Pulmonology Routine Diagnostic Imagining Performed 03/15/25 18:19 CT angio chest PE protocol Stat 03/16/25 09:59 US point of care ultrasound Urgent Pending Results Patient Have Any Pending Studies at Discharge: No Discharge Instructions Given to Patient (Per Discharging Provider) You were admitted to [facility] for persistent bilateral shoulder pain and discomfort found to be consequential of recurrent pleural and pericardial effusions. With regard to the presenting complaint, it is suspected this is consequential of these recurrent pleural effusions; after further review of your chart and interventions provided previously, it was determined, through pulmonology consultation that you have Group 1 pulmonary arterial hypertension. Pulmonology recommends initiation of 2 different medications for chronic control of this condition however they will be initiated in the outpatient setting. In the process of removing these effusions, we administered a loop diuretic which helps you void this volume overload. In the process your creatinine slightly geovanny on the day of discharge, this is why you were provided with intravenous fluids prior to discharge and we will reassess this 3 to 4 days after your discharge. Please continue indomethacin 25 mg p.o. 3 times daily, colchicine, and pantoprazole for protection against any gastric injury related to these medications. Please follow closely with pulmonology after discharge. Thank you for choosing [facility] as your healthcare provider. Total Time Total Time Spent Total Time Spent (In Minutes): I personally spent 90 minutes in today's discharge including coordinating care with the patient's consultants, discussion with the patient at bedside with their spouse, review of the patient's chart including historical records from outside health systems. Coding Level of Care Code 57989 INP/OBS DISCH >30 MIN Diagnoses WHO group 1 pulmonary arterial hypertension I27.21 Pleural effusion J90 Pericardial effusion I31.39 Atrial fibrillation, new onset I48.91 Scleroderma M34.9 Systemic sclerosis with limited cutaneous involvement M34.9 Thrombocytopenia D69.6
== END 2025-03-17 13:43 | disposition home or self-care (01) ==
LOC: 2E 16:40 → ED 16:40 → SUATTDRO 19:58 → 2E 22:11